=== PATIENT | female | born 1960 ===

== ENCOUNTER 2016-10-12 15:18 | Emergency (ER) | payer MEDICARE, OTHER ==
[2016-10-12 15:18] VITALS: BMI 20.9
[2016-10-12 15:48] VITALS: RESP 18; TEMP 98
--- NOTE | 2016-10-12 16:45 | ED PDOC ---
HPI: Abdomen Time Seen by Provider: 10/12/16 16:14 Chief Complaint (Nursing): GI Problem History Per: Patient History/Exam Limitations: no limitations Onset/Duration Of Symptoms: Gradual (2 months ago worse today) Current Symptoms Are (Timing): Still Present Severity: Mild Location Of Pain/Discomfort: RUQ Quality Of Discomfort: Sharp Associated Symptoms: denies: Fever, Chills, Nausea, Vomiting, Diarrhea, Loss Of Appetite, Back Pain, Chest Pain, Constipation, Urinary Symptoms Exacerbating Factors: None, Movement Last Bowel Movement: Yesterday Additional History Per: Patient Additional Complaint(s): Patient having RUQ pain that radiates to the back. Symptoms come and go for 2months. No v/d, nausea. Patient has had series of tests, US negative. medication dexalone and lebrax taken this am. Past Medical History Reviewed: Historical Data, Nursing Documentation, Vital Signs Vital Signs: Last Vital Signs Temp 98.0 F 10/12/16 15:45 Pulse 64 10/12/16 15:45 Resp 18 10/12/16 15:45 BP 102/77 10/12/16 15:45 Pulse Ox 100 10/12/16 18:47 - Medical History PMH: Anxiety, Back Problems (pain), Depression, Gastritis, GERD, HTN, Hypercholesterolemia, Hyperlipidemia, Hyperthyroidism, Hypothyroidism, Kidney Stones, Migraine, Chronic Kidney Disease - Surgical History Surgical History: Denies: Appendectomy - Family History Family History: States: Unknown Family Hx, CAD (father) - Living Arrangements Living Arrangements: With Family - Social History Current smoker - smoking cessation education provided: No - Home Medications Home Medications: Ambulatory Orders Medication Instructions Recorded ALPRAZolam [Xanax] 1 mg PO HS 01/20/16 Famotidine [Pepcid] 20 mg PO DAILY 05/30/16 Mometasone Furoate [Nasonex] 2 spray NS DAILY PRN #1 spray.pump 08/03/16 - Allergies Allergies/Adverse Reactions: Allergies Allergy/AdvReac Type Severity Reaction Status Date / Time diphenhydramine HCl Allergy Intermediate SHORTNESS Verified 05/30/16 18:46 [From Benadryl] OF BREATH ciprofloxacin [From Cipro] Allergy RASH Verified 05/30/16 18:46 ciprofloxacin HCl Allergy RASH Verified 05/30/16 18:46 [From Cipro] hydromorphone HCl Allergy SHORTNESS Verified 05/30/16 18:46 [From Dilaudid] OF BREATH morphine Allergy RASH Verified 05/30/16 18:46 Penicillins Allergy RASH Verified 05/30/16 18:46 Review of Systems ROS Statement: Except As Marked, All Systems Reviewed And Found Negative Constitutional: Negative for: Fever, Chills Cardiovascular: Negative for: Chest Pain, Palpitations Respiratory: Negative for: Cough, Shortness of Breath Gastrointestinal: Positive for: Abdominal Pain. Negative for: Nausea, Vomiting , Diarrhea Physical Exam - Reviewed Nursing Documentation Reviewed: Yes Vital Signs Reviewed: Yes - Physical Exam Appears: Positive for: Uncomfortable Head Exam: Positive for: ATRAUMATIC, NORMAL INSPECTION, NORMOCEPHALIC Eye Exam: Positive for: Normal appearance, EOMI, PERRL Neck: Positive for: Normal, Painless ROM, Supple. Negative for: Decreased ROM Cardiovascular/Chest: Positive for: Regular Rate, Rhythm, Chest Non Tender. Negative for: Edema, Gallop, Murmur, Bradycardia, Tachycardia Respiratory: Positive for: Normal Breath Sounds. Negative for: Decreased Breath Sounds, Accessory Muscle Use, Crackles, Rales, Rhonchi Gastrointestinal/Abdominal: Positive for: Normal Exam, Bowel Sounds, Soft. Negative for: Tenderness Back: Positive for: Normal Inspection. Negative for: L CVA Tenderness, R CVA Tenderness Extremity: Positive for: Normal ROM. Negative for: Tenderness, Pedal Edema Neurologic/Psych: Positive for: Alert, interpreter for the deaf II-XII, Oriented. Negative for: Motor/Sensory Deficits - Laboratory Results Result Diagrams: 10/12/16 16:50 10/12/16 16:50 - ECG ECG: Positive for: Interpreted By Pa ECG Rhythm: Positive for: Normal QRS, Normal ST Segment, Sinus Bradycardia. Negative for: ST/T Changes Interpretation Of Abn EKG: rate 54, no evidence of ischemia O2 Sat by Pulse Oximetry: 100 Pulse Ox Interpretation: Normal - Radiology X-Ray: Interpreted by Pa X-Ray Interpretation: No Acute Disease - Progress ED Course And Treament: pt seen and eval by Dr saucedo in the ed will d/c home Re-evaluation Time: 18:45 Condition: Improved Disposition - Clinical Impression Clinical Impression: Flank pain, acute - Patient ED Disposition Is Patient to be Admitted: No Counseled Patient/Family Regarding: Studies Performed, Diagnosis, Need For Followup - Disposition Referrals: Archie Cooper MD [Family Provider] - Disposition: Routine/Home Disposition Time: 18:46 Condition: GOOD Instructions: Flank Pain (ED)
[2016-10-12 17:12] LABS: BASO % 0.4 % (0.0-2.0); LYMPH # 1.7 K/uL (1.0-4.3); LYMPH % 39.6 % (20.0-40.0); MEAN CELL VOLUME 84.5 fl (81.0-99.0); MEAN CORPUSCULAR HEMOGLOBIN 27.4 pg (27.0-31.0); MEAN CORPUSCULAR HGB CONC 32.4 g/dL (33.0-37.0); MEAN PLATELET VOLUME 9.4 fl (7.2-11.7); MONO # 0.3 K/uL (0.0-0.8); MONO % 7.9 % (0.0-10.0); NEUT # 2.3 K/uL (1.8-7.0); NEUT % 51.1 % (50.0-75.0); NRBC % 0.1 % (0.0-0.0); RED CELL DISTRIBUTION WIDTH 13.7 % (11.5-14.5); WHITE BLOOD COUNT 4.4 K/uL (4.8-10.8)
[2016-10-12 17:17] LABS: RBC URINE 2 /hpf (0-3); URINE BILIRUBIN NEGATIVE (NEGATIVE); URINE BLOOD SMALL (NEGATIVE); URINE COLOR YELLOW (YELLOW); URINE GLUCOSE (UA) NEG (Normal); URINE KETONE TRACE mg/dL (NEGATIVE); URINE LEUKOCYTE ESTERASE NEG Leu/uL (Negative); URINE PROTEIN NEGATIVE (NEGATIVE); URINE UROBILINOGEN 0.2-1.0 mg/dL (0.2-1.0)
[2016-10-12 17:30] LABS: ALB/GLOB RATIO 1.4 (1.0-2.1); ALKALINE PHOSPHATASE 82 U/L (38-126); ALT/SGPT 33 U/L (9-52); AMYLASE 99 U/L (30-110); AST/SGOT 57 U/L (14-36); BILIRUBIN,TOTAL 0.7 mg/dl (0.2-1.3); BLOOD UREA NITROGEN 11 mg/dl (7-17); CARBON DIOXIDE 29 mmol/L (22-30); CHLORIDE 101 mmol/L (98-107); GFR AFRICAN-AMERICAN > 60; GLUCOSE,RANDOM 84 mg/dL (65-105); LIPASE 96 U/L (23-300); POTASSIUM 4.2 MMOL/L (3.6-5.0); SODIUM 144 mmol/l (132-148); TOTAL PROTEIN 7.8 G/DL (6.3-8.2)
--- NOTE | 2016-10-12 18:20 | CT ---
PROCEDURE: CT Abdomen and Pelvis without Oral or IV contrast. HISTORY: r flank pain COMPARISON: CT abdomen and pelvis performed 06/18/15, abdominal ultrasound performed 04/19/16 TECHNIQUE: Contiguous axial images of the abdomen and pelvis. No oral or IV contrast administered. Coronal and Sagittal reformats generated and reviewed. Radiation dose: Total exam DLP = 317.25 MGy-cm. This CT exam was performed using one or more of the following dose reduction techniques: Automated exposure control, adjustment of the mA and/or kV according to patient size, and/or use of iterative reconstruction technique. FINDINGS: There is limited evaluation of the solid organs without the administration of IV contrast. LOWER THORAX: Minimal basilar atelectasis. There is no visible pleural effusion or pneumothorax. Small hiatal hernia. LIVER: Unremarkable unenhanced appearance. GALLBLADDER AND BILE DUCTS: Unremarkable unenhanced appearance. PANCREAS: Unremarkable unenhanced appearance. SPLEEN: Unremarkable unenhanced appearance. ADRENALS: Unremarkable unenhanced appearance. KIDNEYS AND URETERS: No hydronephrosis or obstructing renal calculus. BLADDER: The urinary bladder appears unremarkable. REPRODUCTIVE: Uterus is absent, consistent with hysterectomy. APPENDIX: The appendix appears within normal limits of caliber. No secondary signs of acute appendicitis. BOWEL: The stomach is nondistended. Lack of oral contrast limits evaluation for bowel pathology. The bowel loops appear within normal limits of caliber without evidence of intestinal obstruction. Rectal wall thickening; correlate clinically for possibility of proctitis. PERITONEUM: No significant free fluid. No definite free air. LYMPH NODES: No bulky lymphadenopathy identified. VASCULATURE: No aortic aneurysm. BONES: No acute osseous abnormality is detected. OTHER FINDINGS: None. IMPRESSION: Rectal wall thickening; correlate clinically for possibility of proctitis.
[2016-10-12 19:29] VITALS: BP 112/70; PULSE 78; O2SAT 98
--- NOTE | 2016-10-13 08:15 | RAD ---
PROCEDURE: CHEST RADIOGRAPH, 1 VIEW HISTORY: right flank pain COMPARISON: Comparison is made to 05/24/2016 FINDINGS: LUNGS: Clear. PLEURA: No pneumothorax or pleural fluid seen. CARDIOVASCULAR: Normal. OSSEOUS STRUCTURES: No significant abnormalities. VISUALIZED UPPER ABDOMEN: Normal. OTHER FINDINGS: None. IMPRESSION: No active disease.
--- NOTE | 2016-10-14 11:47 | CARD ---
APPROVED REPORT EKG Measurement Heart [id number] [id number] <Conclusion> Sinus bradycardia Otherwise normal ECG
== END 2016-10-12 19:30 | disposition home or self-care (01) ==
LOC: H.ER 15:18
DX: R10.9 Unspecified abdominal pain (principal); Z88.0 Allergy status to penicillin; I12.9 Hypertensive chronic kidney disease with stage 1 through stage 4 chronic kidney disease, or unspecified chronic kidney disease; F41.9 Anxiety disorder, unspecified; E78.00 Pure hypercholesterolemia, unspecified; E03.9 Hypothyroidism, unspecified
CPT/HCPCS: 71010; 74176; 80053; 81003; 82150; 83690; 84484; 85025; 93005; 96374; 96375; 99282; J1885

== ENCOUNTER 2016-12-14 12:38 | Observation (INO) | payer MEDICARE, OTHER ==
[2016-12-14 12:39] VITALS: BMI 20.9
--- NOTE | 2016-12-14 13:10 | ED PDOC ---
HPI: Chest Pain Time Seen by Provider: 12/14/16 12:49 Chief Complaint (Nursing): Palpitations Chief Complaint (Provider): Chest tightness, palpitations History Per: Patient History/Exam Limitations: no limitations Onset/Duration Of Symptoms: Hrs Current Symptoms Are (Timing): Still Present Severity: Moderate Quality: Tightness Additional History Per: Patient Additional Complaint(s): The patient is a 55yo female, PMHx of hyperthyroidsm, presents to the ED for evaluation of chest tightness associated with palpitations since this morning. The patient reports she has a history of hyperthyroidsm and was recently placed on PtU; she has had similar episodes of chest tightness due to hyperthryoidsm. The patient currently denies any other medical complaints. PCP: None provided Past Medical History Reviewed: Historical Data, Nursing Documentation, Vital Signs Vital Signs: Last Vital Signs Temp 98 F 12/14/16 12:42 Pulse 90 12/14/16 14:19 Resp 20 12/14/16 12:42 BP 136/73 12/14/16 12:42 Pulse Ox 98 12/14/16 14:19 - Medical History PMH: Anxiety, Back Problems (pain), Depression, Gastritis, GERD, HTN, Hypercholesterolemia, Hyperlipidemia, Hyperthyroidism, Hypothyroidism, Kidney Stones, Migraine, Chronic Kidney Disease - Surgical History Surgical History: Denies: Appendectomy - Family History Family History: States: Unknown Family Hx, CAD (father) - Home Medications Home Medications: Ambulatory Orders Medication Instructions Recorded ALPRAZolam [Xanax] 1 mg PO HS 01/20/16 Famotidine [Pepcid] 20 mg PO DAILY 05/30/16 Mometasone Furoate [Nasonex] 2 spray NS DAILY PRN #1 spray.pump 08/03/16 - Allergies Allergies/Adverse Reactions: Allergies Allergy/AdvReac Type Severity Reaction Status Date / Time diphenhydramine HCl Allergy Intermediate SHORTNESS Verified 05/30/16 18:46 [From Benadryl] OF BREATH ciprofloxacin [From Cipro] Allergy RASH Verified 05/30/16 18:46 ciprofloxacin HCl Allergy RASH Verified 05/30/16 18:46 [From Cipro] hydromorphone HCl Allergy SHORTNESS Verified 05/30/16 18:46 [From Dilaudid] OF BREATH morphine Allergy RASH Verified 05/30/16 18:46 Penicillins Allergy RASH Verified 05/30/16 18:46 Review of Systems ROS Statement: Except As Marked, All Systems Reviewed And Found Negative Cardiovascular: Positive for: Palpitations, Other (chest tightness) Physical Exam - Reviewed Nursing Documentation Reviewed: Yes Vital Signs Reviewed: Yes - Physical Exam Appears: Positive for: Well, Non-toxic, No Acute Distress Head Exam: Positive for: ATRAUMATIC, NORMAL INSPECTION, NORMOCEPHALIC Skin: Positive for: Normal Color Eye Exam: Positive for: Normal appearance Neck: Positive for: Normal (no masses noted; no thyroidmegaly present), Supple Cardiovascular/Chest: Positive for: Regular Rate, Rhythm Respiratory: Positive for: Normal Breath Sounds. Negative for: Respiratory Distress Gastrointestinal/Abdominal: Positive for: Soft. Negative for: Tenderness Neurologic/Psych: Positive for: Alert, Oriented - Laboratory Results Result Diagrams: 12/14/16 13:20 12/14/16 13:20 - ECG ECG: Positive for: Interpreted By Me, Viewed By Me ECG Rhythm: Positive for: Sinus Rhythm. Negative for: ST/T Changes Interpretation Of ECG: T-wave inversion V2 and V3, more pronounced compared to EKG done on 05/24/2016. Rate: 90 O2 Sat by Pulse Oximetry: 98 (RA) Pulse Ox Interpretation: Normal Medical Decision Making Medical Decision Making: Time: 1302 Impression: Chest pain, palpitations; r/o ACS vs. symptoms of hyperthyroidsm Plan: * CMP * Troponin I * CBC * EKG Scribe Attestation: Documented by Fabi Ham acting as a scribe for Freddy Walker MD. Provider Attestation: All medical record entries made by the Scribe were at my direction and personally dictated by me. I have reviewed the chart and agree that the record accurately reflects my personal performance of the history, physical exam, medical decision making, and the department course for this patient. I have also personally directed, reviewed, and agree with the discharge instructions and disposition. Disposition - Clinical Impression Clinical Impression: Chest pain - Patient ED Disposition Is Patient to be Admitted: Yes - Disposition Disposition Time: 15:06 Condition: FAIR - Pt Status Changed To: Hospital Disposition Of: Observation - POA Present On Arrival: None
[2016-12-14 13:32] LABS: BASO % 0.4 % (0.0-2.0); EOS % 0.3 % (0.0-4.0); HEMATOCRIT 39.5 % (34.0-47.0); LYMPH # 1.4 K/uL (1.0-4.3); LYMPH % 28.9 % (20.0-40.0); MEAN CELL VOLUME 84.6 fl (81.0-99.0); MEAN CORPUSCULAR HEMOGLOBIN 27.8 pg (27.0-31.0); MEAN CORPUSCULAR HGB CONC 32.8 g/dL (33.0-37.0); MEAN PLATELET VOLUME 8.9 fl (7.2-11.7); MONO # 0.3 K/uL (0.0-0.8); MONO % 5.4 % (0.0-10.0); NEUT # 3.1 K/uL (1.8-7.0); NRBC % 0.1 % (0.0-0.0); RED CELL DISTRIBUTION WIDTH 14.2 % (11.5-14.5); WHITE BLOOD COUNT 4.8 K/uL (4.8-10.8)
[2016-12-14 13:49] LABS: ALB/GLOB RATIO 1.6 (1.0-2.1); ALKALINE PHOSPHATASE 65 U/L (38-126); ALT/SGPT 32 U/L (9-52); AST/SGOT 30 U/L (14-36); BILIRUBIN,TOTAL 0.4 mg/dl (0.2-1.3); BLOOD UREA NITROGEN 13 mg/dl (7-17); CALCIUM 10.2 mg/dL (8.4-10.2); CARBON DIOXIDE 30 mmol/L (22-30); CHLORIDE 103 mmol/L (98-107); GFR AFRICAN-AMERICAN > 60; GLUCOSE,RANDOM 115 mg/dL (65-105); POTASSIUM 4.5 MMOL/L (3.6-5.0); SODIUM 144 mmol/l (132-148); TOTAL PROTEIN 8.1 G/DL (6.3-8.2)
--- NOTE | 2016-12-14 19:57 | CP.PCM.HP ---
History of Present Illness - History of Present Illness History of Present Illness: Pt is a 55 year old female, with a hx of hyperlipidemia, hyperthyroidism, hypothyroidism and hypertension, presenting to the ED for palpitations and chest pain Pt was iseen by endo this week and restarted on PTU Pt has long hx of anxiety and depression Present on Admission - Present on Admission Any Indicators Present on Admission: No Past Patient History - Infectious Disease Hx of Infectious Diseases: None - Tetanus Immunizations Tetanus Immunization: Unknown - Past Medical History & Family History Past Medical History?: Yes - Past Social History Smoking Status: Former Smoker - CARDIAC Hx Hypercholesterolemia: Yes Hx Hypertension: Yes - PULMONARY Hx Respiratory Disorders: No - NEUROLOGICAL Hx Migraine: Yes - HEENT Hx HEENT Problems: No - RENAL Hx Chronic Kidney Disease: Yes Hx Kidney Stones: Yes - ENDOCRINE/METABOLIC Hx Hyperthyroidism: Yes Hx Hypothyroidism: Yes - HEMATOLOGICAL/ONCOLOGICAL Hx Blood Disorders: No Other/Comment: hyperkalemia - INTEGUMENTARY Hx Dermatological Problems: Yes (periorbital cellulitis) - MUSCULOSKELETAL/RHEUMATOLOGICAL Hx Musculoskeletal Disorders: Yes Hx Back Pain: Yes Hx Falls: Yes (TRIPPED & FELL ON HER BUTTOCKS- 2010) Other/Comment: Fibromyalgia - GASTROINTESTINAL Hx Gastritis: Yes - GENITOURINARY/GYNECOLOGICAL Hx Genitourinary Disorders: Yes (UTI) - PSYCHIATRIC Hx Anxiety: Yes Hx Depression: Yes - SURGICAL HISTORY Hx Appendectomy: No - ANESTHESIA Hx Anesthesia: Yes Hx Anesthesia Reactions: No Hx Malignant Hyperthermia: No Meds Allergies/Adverse Reactions: Allergies Allergy/AdvReac Type Severity Reaction Status Date / Time diphenhydramine HCl Allergy Intermediate SHORTNESS Verified 05/30/16 18:46 [From Benadryl] OF BREATH ciprofloxacin [From Cipro] Allergy RASH Verified 05/30/16 18:46 ciprofloxacin HCl Allergy RASH Verified 05/30/16 18:46 [From Cipro] hydromorphone HCl Allergy SHORTNESS Verified 05/30/16 18:46 [From Dilaudid] OF BREATH morphine Allergy RASH Verified 05/30/16 18:46 Penicillins Allergy RASH Verified 05/30/16 18:46 Physical Exam - Respiratory Exam Respiratory Exam: NORMAL BREATHING PATTERN - Cardiovascular Exam Cardiovascular Exam: REGULAR RHYTHM - GI/Abdominal Exam GI & Abdominal Exam: Normal Bowel Sounds Results - Vital Signs Recent Vital Signs: Last Vital Signs Temp 98.4 F 12/14/16 17:10 Pulse 58 L 12/14/16 17:10 Resp 18 12/14/16 17:10 BP 123/71 12/14/16 17:10 Pulse Ox 100 12/14/16 17:10 - Labs Result Diagrams: 12/14/16 13:20 12/14/16 13:20 Assessment & Plan - Assessment and Plan (Free Text) Assessment: Chest pain and palpitations Hx hyperlipidemia, hyperthyroidism, hypothyroidism and hypertension, EKG [facility] Endocronology Anxiety and Depression - Date & Time Date: 12/14/16 Time: 22:22
--- NOTE | 2016-12-14 23:43 | CARD ---
APPROVED REPORT EKG Measurement Heart [id number] <Conclusion> Normal sinus rhythm Nonspecific T wave abnormality Abnormal ECG
[2016-12-15 07:37] LABS: ALB/GLOB RATIO 1.6 (1.0-2.1); ALKALINE PHOSPHATASE 67 U/L (38-126); ALT/SGPT 35 U/L (9-52); AST/SGOT 31 U/L (14-36); BILIRUBIN,TOTAL 0.6 mg/dl (0.2-1.3); BLOOD UREA NITROGEN 15 mg/dl (7-17); CALCIUM 9.8 mg/dL (8.4-10.2); CARBON DIOXIDE 29 mmol/L (22-30); CHLORIDE 103 mmol/L (98-107); GFR AFRICAN-AMERICAN > 60; GLUCOSE,RANDOM 81 mg/dL (65-105); POTASSIUM 4.6 MMOL/L (3.6-5.0); SODIUM 142 mmol/l (132-148); TOTAL PROTEIN 8.1 G/DL (6.3-8.2)
[2016-12-15 07:55] VITALS: O2SAT 100
[2016-12-15 10:35] LABS: BASO % 0.3 % (0.0-2.0); EOS % 0.6 % (0.0-4.0); HEMATOCRIT 40.9 % (34.0-47.0); LYMPH # 1.1 K/uL (1.0-4.3); LYMPH % 27.9 % (20.0-40.0); MEAN CELL VOLUME 85.1 fl (81.0-99.0); MEAN CORPUSCULAR HEMOGLOBIN 27.4 pg (27.0-31.0); MEAN CORPUSCULAR HGB CONC 32.2 g/dL (33.0-37.0); MONO # 0.2 K/uL (0.0-0.8); MONO % 4.6 % (0.0-10.0); NEUT # 2.7 K/uL (1.8-7.0); NEUT % 66.6 % (50.0-75.0); NRBC % 0.3 % (0.0-0.0); RED CELL DISTRIBUTION WIDTH 14.3 % (11.5-14.5); WHITE BLOOD COUNT 4.1 K/uL (4.8-10.8)
[2016-12-15 10:41] LABS: T4 7.29 ug/dl (5.5-11.0)
--- NOTE | 2016-12-15 10:45 | CP.PCM.CON ---
History of Present Illness - History of Present Illness History of Present Illness: THE PATIENT IS A 55 YEAR OLD FEMALE WITH A HISTORY OF ANXIETY AND HYPERTHYROIDISM. SHE HAS BEEN WORRIED THIS MONTH ABOUT HER SON'S HEALTH ISSUE AND EXPERIENCED ANXIETY AND PALPITATIONS AND SHE CAME TO THE ER FOR THIS. SHE ALSO SATED THAT SHE HAD CHEST TIGHTNESS BUT HER MAJOR SYMPTOM WAS PALPITATIONS. IN THE ER SHE HAS REMAINED IN SINUS RHYTHM HER HEART RATE WAS NEVER FAST. SHE HAD A SIMILAR PROBLEM IN MAY 2016 AND HAD AN ECHOCARDIOGRAM THEN AND SHE HAD A NORMAL STRESS TEST IN AUGUST OF 2013. CARDIOLOGY WAS ASKED TO SEE HER. SHE FEELS GOOD NOW WITHOUT ANY CHEST TIGHTNESS, PALPITATIONS OR SOB. Past Patient History - Infectious Disease Hx of Infectious Diseases: None - Tetanus Immunizations Tetanus Immunization: Unknown - Past Medical History & Family History Past Medical History?: Yes - Past Social History Smoking Status: Former Smoker - CARDIAC Hx Cardiac Disorders: No - PULMONARY Hx Respiratory Disorders: No - NEUROLOGICAL Hx Neurological Disorder: No - HEENT Hx HEENT Problems: No - RENAL Hx Chronic Kidney Disease: Yes - ENDOCRINE/METABOLIC Hx Endocrine Disorders: Yes - HEMATOLOGICAL/ONCOLOGICAL Hx Blood Disorders: No - INTEGUMENTARY Hx Dermatological Problems: Yes (periorbital cellulitis) - MUSCULOSKELETAL/RHEUMATOLOGICAL Hx Musculoskeletal Disorders: Yes - GASTROINTESTINAL Hx Gastritis: Yes - GENITOURINARY/GYNECOLOGICAL Hx Genitourinary Disorders: Yes (UTI) - PSYCHIATRIC Hx Psychophysiologic Disorder: No - SURGICAL HISTORY Hx Appendectomy: No - ANESTHESIA Hx Anesthesia: Yes Hx Anesthesia Reactions: No Hx Malignant Hyperthermia: No Meds Allergies/Adverse Reactions: Allergies Allergy/AdvReac Type Severity Reaction Status Date / Time diphenhydramine HCl Allergy Intermediate SHORTNESS Verified 05/30/16 18:46 [From Benadryl] OF BREATH ciprofloxacin [From Cipro] Allergy RASH Verified 05/30/16 18:46 ciprofloxacin HCl Allergy RASH Verified 05/30/16 18:46 [From Cipro] hydromorphone HCl Allergy SHORTNESS Verified 05/30/16 18:46 [From Dilaudid] OF BREATH morphine Allergy RASH Verified 05/30/16 18:46 Penicillins Allergy RASH Verified 05/30/16 18:46 Physical Exam - Respiratory Exam Respiratory Exam: Clear to Auscultation Bilateral - Cardiovascular Exam Cardiovascular Exam: REGULAR RHYTHM, +S1, +S2 - Extremities Exam Extremities exam: Positive for: normal inspection - Additional Findings Additional findings: EKG NSR TROPONINS NORMAL Results - Vital Signs Recent Vital Signs: Last Vital Signs Temp 98.6 F 12/15/16 07:55 Pulse 61 12/15/16 07:55 Resp 18 12/15/16 07:55 BP 101/48 L 12/15/16 07:55 Pulse Ox 100 12/15/16 07:55 - Labs Result Diagrams: 12/15/16 10:20 12/15/16 07:18 Labs: Laboratory Results - last 24 hr 12/15/16 12/15/16 12/15/16 04:15 07:18 10:20 WBC 4.1 L RBC 4.81 Hgb 13.2 Hct 40.9 MCV 85.1 MCH 27.4 MCHC 32.2 L RDW 14.3 Plt Count 210 MPV 9.0 Neut % (Auto) 66.6 Lymph % (Auto) 27.9 [place] % (Auto) 4.6 Eos % (Auto) 0.6 Baso % (Auto) 0.3 Neut # 2.7 Lymph # 1.1 [place] # 0.2 Eos # 0.0 Baso # 0.0 Sodium 142 Potassium 4.6 Chloride 103 Carbon Dioxide 29 Anion Gap 15 BUN 15 Creatinine 0.7 Est GFR ( Amer) > 60 Est GFR (Non-Af Amer) > 60 Random Glucose 81 Calcium 9.8 Total Bilirubin 0.6 AST 31 ALT 35 Alkaline Phosphatase 67 Troponin I < 0.0120 Total Protein 8.1 Albumin 4.9 Globulin 3.2 Albumin/Globulin Ratio 1.6 Assessment & Plan - Assessment and Plan (Free Text) Assessment: ANXIETY WITH PALPITATION AND MILD CHEST TIGHTNESS SENSATION YESTERDAY, ASYMPTOMATIC NOW AND EKG AND TROPONINS ARE NORMAL HYPERTHYROIDISM Plan: OK TO DISCHARGE PATIENT FROM THE CARDIAC STANDPOINT NO CARDIAC TREATMENT IS NEEDED AT THE PRESENT TIME FU WITH ENDOCRINOLOGY THE PATIENT WAS ASKED TO CONSIDER DOING AN OUT PATIENT STRESS TEST IN THE NEAR FUTURE SINCE HER PRIOR STRESS TEST IS NOW [age] YEARS OLD
[2016-12-15 10:54] LABS: THYROID STIMULATING HORMONE 0.57 mIU/ML (0.46-4.68)
[2016-12-15 13:13] VITALS: BP 132/67; PULSE 65; RESP 19; TEMP 98.2
--- NOTE | 2016-12-15 20:54 | CP.PCM.PN ---
Subjective - Date & Time of Evaluation Date of Evaluation: 12/15/16 Time of Evaluation: 22:22 - Subjective Subjective: Above noted Objective - Vital Signs/Intake and Output Vital Signs (last 24 hours): Temp Pulse Resp BP Pulse Ox 98.2 F 65 19 132/67 100 12/15/16 13:11 12/15/16 13:11 12/15/16 13:11 12/15/16 13:11 12/15/16 13:11 - Labs Labs: 12/15/16 10:20 12/15/16 07:18 - Respiratory Exam Respiratory Exam: NORMAL BREATHING PATTERN - Cardiovascular Exam Cardiovascular Exam: REGULAR RHYTHM - GI/Abdominal Exam GI & Abdominal Exam: Normal Bowel Sounds Assessment and Plan - Assessment and Plan (Free Text) Assessment: Chest pain and palpitations Hx hyperlipidemia, hyperthyroidism, hypothyroidism and hypertension, EKG [facility] Endocronology Anxiety and Depression
[2016-12-17 15:20] LABS: TSI <89 % baseline (<140)
--- NOTE | 2016-12-19 14:52 | CON ---
DATE: 12/14/2016 This is a redictation for the admission on 12/14/2016. HISTORY OF PRESENT ILLNESS: This is a 55-year-old female, very well known to me from outpatient [facility] followup, who presents here to the ER with sudden onset of precordial chest pain and supervenin g palpitations and shortness of breath and has been admitted for cardiac evaluation and management. She is being referred now for endocrine evaluation because of recent history of relapse of her hypert hyroid condition as noted thereof. PAST MEDICAL HISTORY: History of Graves' disease with hyperthyroidism and was actually in clinical a nd biochemical remission for over a year until about a month or 2 prior to admission when she had lynn or family problems and emotional stressors and was found by a routine evaluation to have relapse of h er hyperthyroid condition. She was seen in my office a few weeks ago and was started back on her PT U, or propylthiouracil, given as 50 mg once daily, history of hypertension and dyslipidemia, history of nephrolithiasis, stable at this time with no recent stone passage, history of chronic migraines a nd also generalized anxiety and depression with multiple exacerbations of anxiety spells and episodes . She has been taking Xanax and sleeping medications intermittently. History of lumbar disk disease and chronic lower back pain, history of fibromyalgia and is being followed closely by her primary ph ysician and risk assessment consultant, history of GERD and chronic gastritis with intermittent dyspepsia, nausea and upper abdominal pain. FAMILY HISTORY: Positive for hypertension and heart disease. SOCIAL HISTORY: The patient has supportive family. No known substance use. REVIEW OF SYSTEMS: As mentioned above, admits to generalized body weakness with easy fatigability an d tiredness and suboptimal energy level. Also admits to episodic dizziness and lightheadedness with bifrontal headaches. Admits to recent onset of precordial chest pain with supervening palpitations a nd progressive shortness of breath, especially on exertion. Her oral intake is variable with nausea, dyspepsia, and vague upper abdominal pains with an occasional hyperdefecation. PHYSICAL EXAMINATION: GENERAL: An female in no apparent distress. VITAL SIGNS: Blood pressure of 140/80, pulse of 100 beats per minute and regular, temperature 98, re spirations 20. Height is 5 feet 1, weight is 112 pounds. HEENT: Head normocephalic. Eyes anicteric with pink conjunctivae. Fundoscopy not possible at this time. Ears, nose and throat otherwise normal. NECK: Supple. Thyroid gland shows nodular thyromegaly, which is firm and nontender with no bruits o r thyroid nodules palpable. CARDIOPULMONARY: Adynamic precordium. S1, S2 is rapid and regular. LUNGS: Clear to auscultation. ABDOMEN: Flat, soft with positive bowel sounds. EXTREMITIES: No peripheral edema. Pulses are +2 bilaterally. LABORATORY DATA: Chemistry showed a BUN of 13, sodium 144, potassium 4.5, chloride 103, CO2 of , glucose of 115 and creatinine 0.8. Her TSH level is 0.57 with a T4 of 7.29 and free T4 of 0.75 and a thyroid stimulating immunoglobulin of less than 89. ASSESSMENT: This is a 55-year-old female with sudden onset of precordial chest pain and palpitations with shortness of breath, currently admitted to the ER for cardiac evaluation and management and als o significant history of hyperthyroidism with recent relapse of her mild thyrotoxicosis related to tr emendous emotional stressors and family problems at this time. 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 PLAN OF MANAGEMENT: As discussed with the patient and the staff, we will continue the very low dose propylthiouracil, or PTU, given as 50 mg once daily as ordered. We will titrate incrementally as ind icated to optimize metabolic control. We will obtain a thyroid peroxidase antibody and a thyroid sti mulating immunoglobulin to confirm and/or indicate the presence of thyroid autoimmunity. We will als o obtain serial chemistries and supplement accordingly as needed and also repeat comprehensive thyroi d hormonal profile for the morning as indicated. We will follow. Meghan Gibson MD cc: [id number] TT: 12/19/2016 14:52:08 Confirmation # [id number] Dictation # [id number] evelyne
== END 2016-12-15 13:12 | disposition home or self-care (01) ==
LOC: H.ER 12:38 → H.ERHOLD 15:04
PROVIDERS: ADMIT Family Medicine Geriatric Medicine; ATTEND Family Medicine Geriatric Medicine
DX: R07.2 Precordial pain (principal); R00.2 Palpitations; E05.00 Thyrotoxicosis with diffuse goiter without thyrotoxic crisis or storm; E06.3 Autoimmune thyroiditis; I10 Essential (primary) hypertension; E78.5 Hyperlipidemia, unspecified; F41.9 Anxiety disorder, unspecified; F32.9 Major depressive disorder, single episode, unspecified; K21.9 Gastro-esophageal reflux disease without esophagitis; K29.50 Unspecified chronic gastritis without bleeding; M79.7 Fibromyalgia; Z87.891 Personal history of nicotine dependence; Z88.1 Allergy status to other antibiotic agents; Z88.6 Allergy status to analgesic agent; Z88.0 Allergy status to penicillin; Z87.442 Personal history of urinary calculi
CPT/HCPCS: 80053; 84439; 84443; 84445; 84484; 85025; 93005; 99284; G0378

== ENCOUNTER 2017-01-03 10:42 | Emergency (ER) | payer MEDICARE, OTHER ==
[2017-01-03 10:46] VITALS: BP 113/69; PULSE 65; RESP 20; TEMP 98; O2SAT 98
[2017-01-03 10:47] VITALS: BMI 21.1
[2017-01-03 12:13] LABS: BASO % 0.6 % (0.0-2.0); EOS % 0.4 % (0.0-4.0); HEMOGLOBIN 12.9 g/dL (12.0-16.0); LYMPH # 1.5 K/uL (1.0-4.3); LYMPH % 28.2 % (20.0-40.0); MEAN CELL VOLUME 84.2 fl (81.0-99.0); MEAN CORPUSCULAR HEMOGLOBIN 28.1 pg (27.0-31.0); MEAN CORPUSCULAR HGB CONC 33.4 g/dL (33.0-37.0); MEAN PLATELET VOLUME 8.9 fl (7.2-11.7); MONO # 0.2 K/uL (0.0-0.8); MONO % 4.7 % (0.0-10.0); NEUT # 3.4 K/uL (1.8-7.0); NEUT % 66.1 % (50.0-75.0); NRBC % 0.1 % (0.0-0.0); RBC 4.59 Mil/uL (3.80-5.20); RED CELL DISTRIBUTION WIDTH 14.4 % (11.5-14.5); WHITE BLOOD COUNT 5.2 K/uL (4.8-10.8)
[2017-01-03 12:16] LABS: BLOOD UREA NITROGEN 12 mg/dl (7-17); CALCIUM 9.8 mg/dL (8.4-10.2); GFR AFRICAN-AMERICAN > 60; GFR NON-AFRICAN AMERICAN > 60
--- NOTE | 2017-01-03 12:43 | ED PDOC ---
HPI: Headache Time Seen by Provider: 01/03/17 11:05 Chief Complaint (Nursing): Headache Chief Complaint (Provider): Headache History Per: Patient History/Exam Limitations: no limitations Onset/Duration Of Symptoms: Days Current Symptoms Are (Timing): Still Present Additional Complaint(s): Kellen Smith, a 56 year old female, with a past medical history of migraines presents to the ED complaining of a right sided headache. The patient states she had a very stressful day on Wednesday and yesterday she started having a constant right sided headache. She woke up with the headache more than 24 hr ago. She reports headache is similar to her migraines in the past. She had nasuea and photophobia as usual yesterday but resolved today. Her headache was worse yesterday and better today. The patient reports that the pain radiates down her shoulder and right side and up her neck. She reports similar pain in the past with her cervical disk herniations. She also noted some pressure in the right eye. She states that she took advil which offered mild relief. Denies fever, chest pain and shortness of breath. Denies sudden onset and thunderclap headache and says this is not the worse headache she has had in her life. Past Medical History Vital Signs: Last Vital Signs Temp 98 F 01/03/17 10:46 Pulse 65 01/03/17 10:46 Resp 20 01/03/17 10:46 BP 113/69 01/03/17 10:46 Pulse Ox 98 01/03/17 10:46 - Medical History PMH: Anxiety, Back Problems (pain), Depression, Gastritis, GERD, HTN, Hypercholesterolemia, Hyperlipidemia, Hyperthyroidism, Hypothyroidism, Kidney Stones, Migraine, Chronic Kidney Disease - Surgical History Surgical History: Denies: Appendectomy - Family History Family History: States: Unknown Family Hx, CAD (father) - Home Medications Home Medications: Ambulatory Orders Medication Instructions Recorded ALPRAZolam [Xanax] 1 mg PO HS 01/20/16 Dexlansoprazole [Dexilant] 60 mg PO DAILY 12/14/16 Famotidine [Pepcid] 40 mg PO DAILY PRN 12/14/16 Lubiprostone [Amitiza] 8 mcg PO BID PRN 12/14/16 Naproxen Sodium [Naproxen Sodium 550 mg PO BID 12/14/16 Ds] Propylthiouracil [Propylthiouracil] 50 mg PO QPM 12/14/16 Acetaminophen/Butalbital/Caf 1 tab PO Q6 PRN #20 tab 01/03/17 [Fioricet] - Allergies Allergies/Adverse Reactions: Allergies Allergy/AdvReac Type Severity Reaction Status Date / Time diphenhydramine HCl Allergy Intermediate SHORTNESS Verified 01/03/17 11:10 [From Benadryl] OF BREATH ciprofloxacin [From Cipro] Allergy RASH Verified 01/03/17 11:10 ciprofloxacin HCl Allergy RASH Verified 01/03/17 11:10 [From Cipro] hydromorphone HCl Allergy SHORTNESS Verified 01/03/17 11:10 [From Dilaudid] OF BREATH morphine Allergy RASH Verified 01/03/17 11:10 Penicillins Allergy RASH Verified 01/03/17 11:10 Review of Systems Constitutional: Negative for: Fever Cardiovascular: Negative for: Chest Pain Respiratory: Negative for: Shortness of Breath Neurological: Positive for: Headache (Right sided Headache) Physical Exam - Reviewed Nursing Documentation Reviewed: Yes Vital Signs Reviewed: Yes - Physical Exam Appears: Positive for: Non-toxic, No Acute Distress Head Exam: Positive for: ATRAUMATIC, NORMAL INSPECTION, NORMOCEPHALIC Skin: Positive for: Normal Color, Warm, Dry Eye Exam: Positive for: Normal appearance, EOMI, PERRL ENT: Positive for: Normal ENT Inspection Neck: Positive for: Normal (Muscle tenderness to palpation of lateral neck, trapezius muscle; no swelling; no redness; no rash), Painless ROM, Supple Cardiovascular/Chest: Positive for: Regular Rate, Rhythm, Chest Non Tender. Negative for: Tachycardia Respiratory: Positive for: Normal Breath Sounds. Negative for: Wheezing, Respiratory Distress Gastrointestinal/Abdominal: Positive for: Normal Exam, Bowel Sounds, Soft. Negative for: Tenderness, Guarding, Rebound Back: Positive for: Normal Inspection Extremity: Positive for: Normal ROM. Negative for: Deformity, Swelling Neurologic/Psych: Positive for: Alert, Oriented, Gait - Laboratory Results Result Diagrams: 01/03/17 12:00 01/03/17 12:00 - ECG ECG: Positive for: Interpreted By Me, Viewed By Me ECG Rhythm: Positive for: Normal QRS, Normal ST Segment, Sinus Rhythm. Negative for: ST/T Changes Rate: 65 O2 Sat by Pulse Oximetry: 98 (RA) Pulse Ox Interpretation: Normal - Progress Re-evaluation Time: 14:41 Condition: Re-examined, Improved Medical Decision Making Medical Decision Makin Initial Impression: 56 year old female presenting with right sided headache. Differentials: Temporal Vasculitis vs Migraines vs Tension Headache and other causes of headache considered Initial Plan: * CT Head w/o contrast * EKG * Basic Metabolic Panel * CBC * Erythrocyte Sedimentation Rate * Pepcid 20mg IVP * Toradol 15mg IVP * Reevaluation FINDINGS: HEMORRHAGE: No acute parenchymal, subarachnoid or extra-axial hemorrhage. BRAIN: No evidence of large acute infarct. . Re- demonstrated is small low- attenuation focus in the left left inferomedial inferomedial and posterior aspect left basal ganglia that could represent dilated perivascular space. The possibility of a tiny chronic lacunar type infarct not excluded. No obvious parenchymal nor extra-axial mass or collection. Mild age-appropriate volume loss VENTRICLES: No evidence of obstructive hydrocephalus. CALVARIUM: There are no acute calvarial fractures. PARANASAL SINUSES: Unremarkable as visualized. No significant inflammatory changes. MASTOID AIR CELLS: Unremarkable as visualized. No inflammatory changes. OTHER FINDINGS: None. IMPRESSION: No acute intracranial hemorrhage. Re- demonstrated is small low-attenuation focus in the left left inferomedial inferomedial and posterior aspect left basal ganglia that could represent dilated perivascular space. The possibility of a tiny chronic lacunar type infarct not excluded. Mild age-appropriate volume loss. Scribe Attestation Documented by Linh Almanza acting as a scribe for Keiry Rosales MD. Provider Attestation: All medical record entries made by the Scribe were at my direction and personally dictated by me. I have reviewed the chart and agree that the record accurately reflects my personal performance of the history, physical exam, medical decision making, and the department course for this patient. I have also personally directed, reviewed, and agree with the discharge instructions and disposition. Disposition - Clinical Impression Clinical Impression: Headache, Myalgia - Patient ED Disposition Is Patient to be Admitted: No Doctor Will See Patient In The: Office Counseled Patient/Family Regarding: Studies Performed, Diagnosis, Need For Followup - Disposition Referrals: Krishan Ibarra MD [Staff Provider] - Disposition: Routine/Home Disposition Time: 14:41 Condition: GOOD Additional Instructions: Return for worsening. Follow up with your PCP in 2-3 days. Prescriptions: Acetaminophen/Butalbital/Caf [Fioricet] 1 tab PO Q6 PRN #20 tab PRN Reason: Headache Instructions: General Headache (ED)
--- NOTE | 2017-01-03 14:06 | CT ---
PROCEDURE: CT HEAD WITHOUT CONTRAST. HISTORY: headache COMPARISON: Comparison made with CT scan of the brain dated 06/18/2015. TECHNIQUE: Axial computed tomography images were obtained through the head/brain without intravenous contrast. Radiation dose: Total exam DLP = 732.28 mGy-cm. This CT exam was performed using one or more of the following dose reduction techniques: Automated exposure control, adjustment of the mA and/or kV according to patient size, and/or use of iterative reconstruction technique. FINDINGS: HEMORRHAGE: No acute parenchymal, subarachnoid or extra-axial hemorrhage. BRAIN: No evidence of large acute infarct. . Re- demonstrated is small low-attenuation focus in the left left inferomedial inferomedial and posterior aspect left basal ganglia that could represent dilated perivascular space. The possibility of a tiny chronic lacunar type infarct not excluded. No obvious parenchymal nor extra-axial mass or collection. Mild age-appropriate volume loss VENTRICLES: No evidence of obstructive hydrocephalus. CALVARIUM: There are no acute calvarial fractures. PARANASAL SINUSES: Unremarkable as visualized. No significant inflammatory changes. MASTOID AIR CELLS: Unremarkable as visualized. No inflammatory changes. OTHER FINDINGS: None. IMPRESSION: No acute intracranial hemorrhage. Re- demonstrated is small low-attenuation focus in the left left inferomedial inferomedial and posterior aspect left basal ganglia that could represent dilated perivascular space. The possibility of a tiny chronic lacunar type infarct not excluded. Mild age-appropriate volume loss.
== END 2017-01-03 15:03 | disposition home or self-care (01) ==
LOC: H.ER 10:42
DX: R51 Headache (principal); M79.1 Myalgia; Z86.59 Personal history of other mental and behavioral disorders; I12.9 Hypertensive chronic kidney disease with stage 1 through stage 4 chronic kidney disease, or unspecified chronic kidney disease; Z87.442 Personal history of urinary calculi; Z88.0 Allergy status to penicillin; K21.9 Gastro-esophageal reflux disease without esophagitis
CPT/HCPCS: 70450; 80048; 85025; 85651; 96374; 96375; 99285; J1885

== ENCOUNTER 2017-04-12 10:59 | Emergency (ER) | payer MEDICARE, OTHER ==
[2017-04-12 11:00] VITALS: BMI 21.1
[2017-04-12] MEDS ORDERED: Sodium Chloride 0.9% 1,000 ML IV STA (12:03)
--- NOTE | 2017-04-12 12:22 | ED PDOC ---
HPI: Abdomen Time Seen by Provider: 04/12/17 11:32 Chief Complaint (Nursing): Abdominal Pain Chief Complaint (Provider): Abdominal pain History Per: Patient History/Exam Limitations: no limitations Onset/Duration Of Symptoms: Days Outside of [place] travel?: No Current Symptoms Are (Timing): Still Present Context: Food Location Of Pain/Discomfort: RUQ, Epigastric Quality Of Discomfort: "Pain" Associated Symptoms: denies: Fever, Vomiting, Diarrhea, Chest Pain, Urinary Symptoms Additional Complaint(s): 56yo female, presents to ED today for evaluation of right upper quadrant and epigastric pain, present for the past 3 days. Patient reports she ate something new 3 days ago and since then, she has had a constant abdominal pain. She reports taking Dexilant due to history of kidney stone and gastritis, she took the medication today with no relief. She denies any fever, vomiting, diarrhea, dysuria, chest pain. She offers no other medical complaints. PCP: Dr. Archie Cooper Past Medical History Reviewed: Historical Data, Nursing Documentation, Vital Signs Vital Signs: Last Vital Signs Temp 98 F 04/12/17 17:10 Pulse 56 L 04/12/17 17:10 Resp 18 04/12/17 17:10 BP 126/75 04/12/17 17:10 Pulse Ox 99 04/12/17 18:55 - Medical History PMH: Anxiety, Back Problems (pain), Depression, Gastritis, GERD, HTN, Hypercholesterolemia, Hyperlipidemia, Hyperthyroidism, Hypothyroidism, Kidney Stones, Migraine, Chronic Kidney Disease - Surgical History Surgical History: Appendectomy - Family History Family History: States: Unknown Family Hx, CAD (father) - Social History Current smoker - smoking cessation education provided: No Ex-Smoker (has not smoked in the last 12 months): Yes Alcohol: None Drugs: Denies - Home Medications Home Medications: Ambulatory Orders Medication Instructions Recorded ALPRAZolam [Xanax] 1 mg PO HS 01/20/16 Dexlansoprazole [Dexilant] 60 mg PO DAILY 12/14/16 Famotidine [Pepcid] 40 mg PO DAILY PRN 12/14/16 Lubiprostone [Amitiza] 8 mcg PO BID PRN 12/14/16 Naproxen Sodium [Naproxen Sodium 550 mg PO BID 12/14/16 Ds] Propylthiouracil [Propylthiouracil] 50 mg PO QPM 12/14/16 Acetaminophen/Butalbital/Caf 1 tab PO Q6 PRN #20 tab 01/03/17 [Fioricet] - Allergies Allergies/Adverse Reactions: Allergies Allergy/AdvReac Type Severity Reaction Status Date / Time diphenhydramine HCl Allergy Intermediate SHORTNESS Verified 04/12/17 11:32 [From Benadryl] OF BREATH ciprofloxacin [From Cipro] Allergy RASH Verified 04/12/17 11:32 ciprofloxacin HCl Allergy RASH Verified 04/12/17 11:32 [From Cipro] hydromorphone HCl Allergy SHORTNESS Verified 04/12/17 11:32 [From Dilaudid] OF BREATH morphine Allergy RASH Verified 04/12/17 11:32 Penicillins Allergy RASH Verified 04/12/17 11:32 Review of Systems ROS Statement: Except As Marked, All Systems Reviewed And Found Negative Constitutional: Negative for: Fever Cardiovascular: Negative for: Chest Pain Gastrointestinal: Positive for: Abdominal Pain. Negative for: Nausea, Vomiting , Diarrhea Genitourinary Female: Negative for: Dysuria Physical Exam - Reviewed Nursing Documentation Reviewed: Yes Vital Signs Reviewed: Yes - Physical Exam Appears: Positive for: Non-toxic, No Acute Distress Head Exam: Positive for: ATRAUMATIC, NORMAL INSPECTION, NORMOCEPHALIC Skin: Positive for: Warm Neck: Positive for: Supple Cardiovascular/Chest: Positive for: Regular Rate, Rhythm Respiratory: Positive for: Normal Breath Sounds. Negative for: Respiratory Distress Gastrointestinal/Abdominal: Positive for: Soft, Tenderness (right upper quadrant and epigastric tenderness), Other (positive Wright's sign) Back: Positive for: Normal Inspection. Negative for: L CVA Tenderness, R CVA Tenderness Neurologic/Psych: Positive for: Alert, Oriented. Negative for: Motor/Sensory Deficits - Laboratory Results Result Diagrams: 04/12/17 13:05 04/12/17 13:05 - ECG O2 Sat by Pulse Oximetry: 100 (RA) Pulse Ox Interpretation: Normal Medical Decision Making Medical Decision Making: Time: 12:04 Initial impression: Abdominal pain. Differential: Cholecystitis, pancreatitis, gastritis. Less likely kidney stones. Initial plan: Labs ED Urine Dipstick Pepcid 20 mg IVP Toradol 30 mg IVP Normal Saline 1 L IV Abdominal ultrasound Reevaluation 14:43 Abdominal ultrasound reviewed. Findings noted as follows: LIVER: Measures 13.9 cm in length. Patent portal vein. Portal venous flow: Hepatopetal. Unremarkeable echogenicity of the liver parenchyma. No mass. No intrahepatic bile duct dilatation. GALLBLADDER: Unremarkable. No gallstones. COMMON BILE DUCT: Measures 2.1 mm. No stones. No dilatation. PANCREAS: Unremarkable as visualized. No mass. No ductal dilatation. RIGHT KIDNEY: Measures 3.8 x 5.3 x 8.6 cm in length. Normal echogenicity. No calculus, mass, or hydronephrosis. AORTA: No aneurysmal dilatation. IVC: Unremarkable. OTHER FINDINGS: None . IMPRESSION: No significant or acute findings to account for/ related to the clinical presentation. No significant interval change compared to the prior examination(s ). Scribe Attestation: Documented by Marybeth Graves, acting as a scribe for Keiry Rosales MD. Provider Scribe Attestation: All medical record entries made by the Scribe were at my direction and personally dictated by me. I have reviewed the chart and agree that the record accurately reflects my personal performance of the history, physical exam, medical decision making, and the department course for this patient. I have also personally directed, reviewed, and agree with the discharge instructions and disposition. Disposition - Clinical Impression Clinical Impression: Abdominal pain in female - Patient ED Disposition Is Patient to be Admitted: Transfer of Care Counseled Patient/Family Regarding: Studies Performed, Diagnosis - Disposition Referrals: [facility] [Outside] [facility] [Outside] Disposition: Transfer of Care Disposition Time: 17:00 Condition: IMPROVED Additional Instructions: follow up with your primary doctor in 1-2 days return to the ED with any worsening or concerning symptoms Instructions: Abdominal Pain (ED) Patient Signed Over To: Chasity Herring
[2017-04-12 13:20] LABS: BASO % 0.4 % (0.0-2.0); EOS % 0.3 % (0.0-4.0); HEMATOCRIT 39.4 % (34.0-47.0); LYMPH # 1.3 K/uL (1.0-4.3); LYMPH % 25.6 % (20.0-40.0); MEAN CORPUSCULAR HEMOGLOBIN 28.5 pg (27.0-31.0); MEAN CORPUSCULAR HGB CONC 33.1 g/dL (33.0-37.0); MEAN PLATELET VOLUME 9.8 fl (7.2-11.7); MONO # 0.2 K/uL (0.0-0.8); MONO % 4.2 % (0.0-10.0); NEUT # 3.6 K/uL (1.8-7.0); NEUT % 69.5 % (50.0-75.0); NRBC % 0.1 % (0.0-0.0); RED CELL DISTRIBUTION WIDTH 13.1 % (11.5-14.5); WHITE BLOOD COUNT 5.3 K/uL (4.8-10.8)
[2017-04-12 13:28] LABS: ALB/GLOB RATIO 1.6 (1.0-2.1); ALKALINE PHOSPHATASE 63 U/L (38-126); ALT/SGPT 28 U/L (9-52); AST/SGOT 31 U/L (14-36); BILIRUBIN,TOTAL 0.5 mg/dl (0.2-1.3); BLOOD UREA NITROGEN 12 mg/dl (7-17); CALCIUM 10.1 mg/dL (8.4-10.2); CARBON DIOXIDE 31 mmol/L (22-30); CHLORIDE 104 mmol/L (98-107); GFR AFRICAN-AMERICAN > 60; GLUCOSE,RANDOM 103 mg/dL (65-105); LIPASE 142 U/L (23-300); POTASSIUM 4.2 MMOL/L (3.6-5.0); SODIUM 144 mmol/l (132-148); TOTAL PROTEIN 7.4 G/DL (6.3-8.2)
--- NOTE | 2017-04-12 14:45 | US ---
HISTORY: RUQ pain COMPARISON: 04/19/2016 TECHNIQUE: Sonographic evaluation of the right upper quadrant of the abdomen. FINDINGS: LIVER: Measures 13.9 cm in length. Patent portal vein. Portal venous flow: Hepatopetal. Unremarkeable echogenicity of the liver parenchyma. No mass. No intrahepatic bile duct dilatation. GALLBLADDER: Unremarkable. No gallstones. COMMON BILE DUCT: Measures 2.1 mm. No stones. No dilatation. PANCREAS: Unremarkable as visualized. No mass. No ductal dilatation. RIGHT KIDNEY: Measures 3.8 x 5.3 x 8.6 cm in length. Normal echogenicity. No calculus, mass, or hydronephrosis. AORTA: No aneurysmal dilatation. IVC: Unremarkable. OTHER FINDINGS: None . IMPRESSION: No significant or acute findings to account for/ related to the clinical presentation. No significant interval change compared to the prior examination(s).
[2017-04-12] MEDS ORDERED: Alum-Mag Hydrox-Simethicone Susp (30 mL) PO ONE (17:00)
[2017-04-12 17:11] VITALS: BP 126/75; PULSE 56; RESP 18; TEMP 98
--- NOTE | 2017-04-12 17:23 | ED PDOC ---
- Laboratory Results Result Diagrams: 04/12/17 13:05 04/12/17 13:05 - ECG O2 Sat by Pulse Oximetry: 99 (RA) Pulse Ox Interpretation: Normal Medical Decision Making Medical Decision Making: Receiving sign out: Patient signed out to me by Dr. Rosales at 1700 pending re-evaluation. Scribe Attestation: Documented by Fabi Ham acting as a scribe for Chasity Herring MD. Provider Attestation: All medical record entries made by the Scribe were at my direction and personally dictated by me. I have reviewed the chart and agree that the record accurately reflects my personal performance of the history, physical exam, medical decision making, and the department course for this patient. I have also personally directed, reviewed, and agree with the discharge instructions and disposition. Disposition - Clinical Impression Clinical Impression: Abdominal pain in female - POA Present On Arrival: None - Disposition Referrals: [facility] [Outside] [facility] [Outside] Disposition: Routine/Home Disposition Time: 19:00 Condition: IMPROVED Additional Instructions: follow up with your primary doctor in 1-2 days return to the ED with any worsening or concerning symptoms Instructions: Abdominal Pain (ED) Progress Note - Review of Symptoms Events since last encounter: Time: 1850 Upon re-evaluation, patient reports feeling much better. Stable for discharge home. CT shows no acute findings. pt made aware.
--- NOTE | 2017-04-12 17:55 | CT ---
PROCEDURE: CT Abdomen and Pelvis without intravenous contrast HISTORY: right flank pain COMPARISON: 10/12/2016 CT abdomen and pelvis April 12, 2017. Abdominal ultrasound TECHNIQUE: Unenhanced study. Neither oral nor intravenous contrast administered. Radiation dose: Total exam DLP = 362.32 mGy-cm. This CT exam was performed using one or more of the following dose reduction techniques: Automated exposure control, adjustment of the mA and/or kV according to patient size, and/or use of iterative reconstruction technique. FINDINGS: LOWER THORAX: Unremarkable. LIVER: Unremarkable. No gross lesion or ductal dilatation. GALLBLADDER AND BILE DUCTS: Unremarkable. PANCREAS: Unremarkable. No gross lesion or ductal dilatation. SPLEEN: Unremarkable. ADRENALS: Unremarkable. No mass. KIDNEYS AND URETERS: Unremarkable. No hydronephrosis. No solid mass. VASCULATURE: Unremarkable. No aortic aneurysm. BOWEL: Unremarkable. No obstruction. No gross mural thickening. APPENDIX: Unremarkable. Normal appendix. PERITONEUM: Unremarkable. No free fluid. No free air. LYMPH NODES: Unremarkable. No enlarged lymph nodes. BLADDER: Under distention of the bladder accentuating bladder wall thickness without focal bladder wall abnormality. REPRODUCTIVE: Unremarkable. BONES: No acute fracture. OTHER FINDINGS: None. IMPRESSION: No acute findings related to/accounting for the clinical presentation. Additional benign and/or incidental findings described above. No significant interval change compared to the prior examination(s).
[2017-04-12] MEDS ORDERED: Alum-Mag Hydrox-Simethicone Susp (30 mL) ONE (18:20)
--- NOTE | 2017-04-13 08:25 | CARD ---
APPROVED REPORT EKG Measurement Heart [id number] ID [id number] <Conclusion> Sinus bradycardia Otherwise normal ECG
[2017-04-13 22:43] VITALS: O2SAT 99
== END 2017-04-12 19:25 | disposition home or self-care (01) ==
LOC: H.ER 10:59
DX: R10.13 Epigastric pain (principal); Z87.442 Personal history of urinary calculi; E03.9 Hypothyroidism, unspecified; E05.90 Thyrotoxicosis, unspecified without thyrotoxic crisis or storm; E78.00 Pure hypercholesterolemia, unspecified; F32.9 Major depressive disorder, single episode, unspecified; F41.9 Anxiety disorder, unspecified; I12.9 Hypertensive chronic kidney disease with stage 1 through stage 4 chronic kidney disease, or unspecified chronic kidney disease; K21.9 Gastro-esophageal reflux disease without esophagitis; Z88.0 Allergy status to penicillin
CPT/HCPCS: 74176; 76705; 80053; 83690; 85025; 93005; 96374; 96375; 99282; J1885; J7040

== ENCOUNTER 2017-06-03 19:51 | Emergency (ER) | payer MEDICARE, OTHER ==
[2017-06-03 19:51] VITALS: BMI 21.1
[2017-06-03 20:02] VITALS: BP 107/54; PULSE 71; RESP 16; TEMP 97.6; O2SAT 99
--- NOTE | 2017-06-03 20:46 | ED PDOC ---
HPI: General Adult Chief Complaint (Provider): neck pain and back pain History Per: Patient History/Exam Limitations: no limitations Onset/Duration Of Symptoms: Days (x 2 weeks) Current Symptoms Are (Timing): Still Present Time Seen by Provider: 06/03/17 20:19 Chief Complaint (Nursing): Back Pain Additional Complaint(s): Kellen is a 56 y/o female with a history of chronic neck and back pain, who presents to the ED complaining of exacerbation of symptoms that started a couple weeks ago with no associated fall or trauma. She also states the pain started radiating to both arms as of a few days ago, which hasn't happened before. 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 She denies any chest pain, shortness of breath or dyspnea on exertion. Tylenol taken today at 3 pm helped only minimally with pain. PMD: Archie Cooper ([facility]) Past Medical History Reviewed: Historical Data, Nursing Documentation, Vital Signs - Medical History PMH: Anxiety, Back Problems (pain), Depression, Gastritis, GERD, HTN, Hypercholesterolemia, Hyperlipidemia, Hypothyroidism, Kidney Stones, Migraine, Osteoporosis (lower spine, left hip) - Surgical History Surgical History: Appendectomy - Family History Family History: States: CAD (father) - Living Arrangements Living Arrangements: With Family - Social History Current smoker - smoking cessation education provided: No Alcohol: None Drugs: Denies Vital Signs: Last Vital Signs Temp 97.6 F 06/03/17 19:59 Pulse 71 06/03/17 19:59 Resp 16 06/03/17 19:59 BP 107/54 L 06/03/17 19:59 Pulse Ox 99 06/03/17 21:34 - Home Medications Home Medications: Ambulatory Orders Medication Instructions Recorded ALPRAZolam [Xanax] 1 mg PO HS 01/20/16 Dexlansoprazole [Dexilant] 60 mg PO DAILY 12/14/16 Famotidine [Pepcid] 40 mg PO DAILY PRN 12/14/16 Lubiprostone [Amitiza] 8 mcg PO BID PRN 12/14/16 Naproxen Sodium [Naproxen Sodium 550 mg PO BID 12/14/16 Ds] Propylthiouracil [Propylthiouracil] 50 mg PO QPM 12/14/16 Acetaminophen/Butalbital/Caf 1 tab PO Q6 PRN #20 tab 01/03/17 [Fioricet] Ibuprofen [Motrin] 600 mg PO Q6 PRN #15 tab 06/03/17 Methylprednisolone [Medrol Dose 4 mg PO ASDIR #21 mg 06/03/17 Pack (21 tabs)] tiZANidine [Zanaflex] 4 mg PO Q8H PRN #20 tab 06/03/17 - Allergies Allergies/Adverse Reactions: Allergies Allergy/AdvReac Type Severity Reaction Status Date / Time diphenhydramine HCl Allergy Intermediate SHORTNESS Verified 06/03/17 19:59 [From Benadryl] OF BREATH ciprofloxacin [From Cipro] Allergy RASH Verified 06/03/17 19:59 ciprofloxacin HCl Allergy RASH Verified 06/03/17 19:59 [From Cipro] hydromorphone HCl Allergy SHORTNESS Verified 06/03/17 19:59 [From Dilaudid] OF BREATH morphine Allergy RASH Verified 06/03/17 19:59 Penicillins Allergy RASH Verified 06/03/17 19:59 Review of Systems ROS Statement: Except As Marked, All Systems Reviewed And Found Negative Constitutional: Negative for: Fever Cardiovascular: Negative for: Chest Pain Respiratory: Negative for: Shortness of Breath, SOB with Exertion Gastrointestinal: Negative for: Nausea, Vomiting Musculoskeletal: Positive for: Neck Pain (radiating to both arms), Back Pain Neurological: Negative for: Weakness, Numbness, Incoordination, Change in Speech , Confusion, Seizures, Altered Mental Status, Headache, Dizziness Physical Exam - Reviewed Nursing Documentation Reviewed: Yes Vital Signs Reviewed: Yes - Physical Exam Appears: Positive for: Well, Non-toxic, No Acute Distress Head Exam: Positive for: ATRAUMATIC, NORMAL INSPECTION, NORMOCEPHALIC Skin: Positive for: Normal Color Eye Exam: Positive for: Normal appearance Neck: Positive for: Pain On Movement Of Neck (mild tenderness to bilateral paraspinal regions along cervical spine, no midline tenderness or step off) Cardiovascular/Chest: Positive for: Regular Rate, Rhythm Respiratory: Positive for: Normal Breath Sounds. Negative for: Respiratory Distress Back: Positive for: Vertebral Tenderness (Tenderness along the paraspinal regions of lumbar spine, no midline tenderness, no step-off, negative bilateral straight leg raise). Negative for: L CVA Tenderness, R CVA Tenderness Extremity: Positive for: Normal ROM, Other (Full range of motion bilateral upper extremities are strong and equal bilateral hand allopathic doctor) Neurologic/Psych: Positive for: Alert, vp of marketing II-XII (grossly normal), Oriented, Gait (steady). Negative for: Motor/Sensory Deficits, Aphasia, Facial Droop - ECG O2 Sat by Pulse Oximetry: 99 (RA) Pulse Ox Interpretation: Normal Medical Decision Making Medical Decision Making: Time: 20:41 Initial Impression: 56 y/o female with exacerbation of chronic neck and back pain Initial Plan: --Toradol IM --Patient was counseled on need for follow up for pain management Patient reports improvement of pain after Toradol injection. Prescriptions provided for Motrin, Medrol Dosepak and tizanidine. Patient instructed to follow up as soon as possible with her paint crew supervisor. Scribe Attestation: Documented by Emir Bourgeois, acting as a scribe for Valorie Mercedes PA-C Provider Scribe Attestation: All medical record entries made by the Scribe were at my direction and personally dictated by me. I have reviewed the chart and agree that the record accurately reflects my personal performance of the history, physical exam, medical decision making, and the department course for this patient. I have also personally directed, reviewed, and agree with the discharge instructions and disposition. (Valorie Mercedes) Disposition - Patient ED Disposition Is Patient to be Admitted: No Counseled Patient/Family Regarding: Diagnosis, Need For Followup, Rx Given - Disposition Disposition: Routine/Home Disposition Time: 21:07 - Clinical Impression Clinical Impression: Chronic neck and back pain - Disposition Referrals: Devon Garcia MD [Staff Provider] - Condition: STABLE Additional Instructions: Take rx meds as directed. Follow up with pain management. Prescriptions: Ibuprofen [Motrin] 600 mg PO Q6 PRN #15 tab PRN Reason: Pain, Moderate (4-7) Methylprednisolone [Medrol Dose Pack (21 tabs)] 4 mg PO ASDIR #21 mg tiZANidine [Zanaflex] 4 mg PO Q8H PRN #20 tab PRN Reason: Muscle Pain Instructions: Chronic Pain (ED), Cervical Sprain (ED), Cervical Radiculopathy ( ED), Back Pain (ED) Forms: [employer] ([place]an)
--- NOTE | 2017-06-04 08:47 | CARD ---
APPROVED REPORT EKG Measurement Heart [id number] <Conclusion> Sinus bradycardia Otherwise normal ECG
== END 2017-06-03 21:37 | disposition home or self-care (01) ==
LOC: H.ER 19:51
DX: M54.9 Dorsalgia, unspecified (principal); M54.2 Cervicalgia; E03.9 Hypothyroidism, unspecified; E78.00 Pure hypercholesterolemia, unspecified; F32.9 Major depressive disorder, single episode, unspecified; F41.9 Anxiety disorder, unspecified; G89.29 Other chronic pain; I10 Essential (primary) hypertension; K21.9 Gastro-esophageal reflux disease without esophagitis; M81.0 Age-related osteoporosis without current pathological fracture; Z87.442 Personal history of urinary calculi; Z88.0 Allergy status to penicillin
CPT/HCPCS: 93005; 96372; 99282; J1885

== ENCOUNTER 2017-06-15 17:57 | Emergency (ER) | payer MEDICARE, OTHER ==
[2017-06-15 17:57] VITALS: BMI 21.1
[2017-06-15 20:26] LABS: BASO % 0.6 % (0.0-2.0); EOS % 0.7 % (0.0-4.0); LYMPH % 35.9 % (20.0-40.0); MEAN CELL VOLUME 86.9 fl (81.0-99.0); MEAN CORPUSCULAR HEMOGLOBIN 27.9 pg (27.0-31.0); MEAN CORPUSCULAR HGB CONC 32.1 g/dL (33.0-37.0); MEAN PLATELET VOLUME 9.1 fl (7.2-11.7); MONO # 0.3 K/uL (0.0-0.8); MONO % 5.2 % (0.0-10.0); NEUT # 3.2 K/uL (1.8-7.0); NEUT % 57.6 % (50.0-75.0); NRBC % 0.1 % (0.0-0.0); RED CELL DISTRIBUTION WIDTH 14.4 % (11.5-14.5); WHITE BLOOD COUNT 5.6 K/uL (4.8-10.8)
--- NOTE | 2017-06-15 21:25 | ED PDOC ---
HPI: General Adult Time Seen by Provider: 06/15/17 19:28 Chief Complaint (Nursing): Chest Pain Chief Complaint (Provider): Fatigue History Per: Patient History/Exam Limitations: no limitations Onset/Duration Of Symptoms: Days (x3) Current Symptoms Are (Timing): Still Present Recently: Treated By A Physician Additional Complaint(s): Kellen Smith is a 56 year old female, with a past medical history of hypertension, arthritis, hypothyroidism, chronic kidney disease, and hypercholesterolemia, who presents to the emergency department complaining of fatigue associated with increased generalized weakness and heaviness in her chest onset for x3 days. She is also complaining of chills and nausea. Patient reports a decrease exercise tolerance and dyspnea on exertion. Patient states it became more severe this morning when she woke up. She saw her PMD today who advised her to come to ER. She had a similar episode x1 year ago when she was diagnosed with hypothyroidism. She denies any focal weakness, headache, vomiting or fever. No further medical complaints. PMD: Archie Monge Past Medical History Reviewed: Historical Data, Nursing Documentation, Vital Signs Vital Signs: Last Vital Signs Temp 97.7 F 06/15/17 18:20 Pulse 64 06/15/17 18:20 Resp 16 06/15/17 18:20 BP 144/76 06/15/17 18:20 Pulse Ox 98 06/15/17 21:32 - Medical History PMH: Anxiety, Arthritis, Back Problems (pain), Depression, Gastritis, GERD, HTN , Hypercholesterolemia, Hyperlipidemia, Hyperthyroidism, Hypothyroidism, Kidney Stones, Migraine, Osteoporosis (lower spine, left hip), Chronic Kidney Disease - Surgical History Surgical History: Appendectomy - Family History Family History: States: CAD (father), Hypertension - Social History Current smoker - smoking cessation education provided: No Alcohol: None Drugs: Denies - Home Medications Home Medications: Ambulatory Orders Medication Instructions Recorded ALPRAZolam [Xanax] 1 mg PO HS 01/20/16 Dexlansoprazole [Dexilant] 60 mg PO DAILY 12/14/16 Famotidine [Pepcid] 40 mg PO DAILY PRN 12/14/16 Lubiprostone [Amitiza] 8 mcg PO BID PRN 12/14/16 Naproxen Sodium [Naproxen Sodium 550 mg PO BID 12/14/16 Ds] Propylthiouracil [Propylthiouracil] 50 mg PO QPM 12/14/16 Acetaminophen/Butalbital/Caf 1 tab PO Q6 PRN #20 tab 01/03/17 [Fioricet] Ibuprofen [Motrin] 600 mg PO Q6 PRN #15 tab 06/03/17 Methylprednisolone [Medrol Dose 4 mg PO ASDIR #21 mg 06/03/17 Pack (21 tabs)] tiZANidine [Zanaflex] 4 mg PO Q8H PRN #20 tab 06/03/17 - Allergies Allergies/Adverse Reactions: Allergies Allergy/AdvReac Type Severity Reaction Status Date / Time diphenhydramine HCl Allergy Intermediate SHORTNESS Verified 06/15/17 18:19 [From Benadryl] OF BREATH ciprofloxacin [From Cipro] Allergy RASH Verified 06/15/17 18:19 ciprofloxacin HCl Allergy RASH Verified 06/15/17 18:19 [From Cipro] hydromorphone HCl Allergy SHORTNESS Verified 06/15/17 18:19 [From Dilaudid] OF BREATH morphine Allergy RASH Verified 06/15/17 18:19 Penicillins Allergy RASH Verified 06/15/17 18:19 Review of Systems ROS Statement: Except As Marked, All Systems Reviewed And Found Negative Constitutional: Positive for: Chills, Weakness (generalized ), Other (fatigue). Negative for: Fever Eyes: Negative for: Other (focal weakness) Respiratory: Positive for: Other (dyspnea on exertion ) Gastrointestinal: Positive for: Nausea. Negative for: Vomiting Neurological: Negative for: Headache Physical Exam - Reviewed Nursing Documentation Reviewed: Yes Vital Signs Reviewed: Yes - Physical Exam Appears: Positive for: Well, No Acute Distress (but tired appearing) Head Exam: Positive for: ATRAUMATIC, NORMOCEPHALIC Skin: Positive for: Warm, Dry Eye Exam: Positive for: EOMI, PERRL ENT: Negative for: Pharyngeal Erythema, Tonsillar Exudate Neck: Positive for: Painless ROM, Supple Cardiovascular/Chest: Positive for: Regular Rate, Rhythm, Chest Non Tender. Negative for: Murmur Respiratory: Positive for: Normal Breath Sounds. Negative for: Wheezing Gastrointestinal/Abdominal: Positive for: Soft. Negative for: Tenderness Back: Positive for: Normal Inspection. Negative for: Decreased ROM Extremity: Positive for: Normal ROM. Negative for: Deformity Lymphatic: Negative for: Adenopathy Neurologic/Psych: Positive for: Alert. Negative for: Motor/Sensory Deficits - Laboratory Results Result Diagrams: 06/15/17 20:21 06/15/17 20:08 - ECG O2 Sat by Pulse Oximetry: 98 (RA) Pulse Ox Interpretation: Normal Medical Decision Making Medical Decision Making: Initial Impression: weakness. Differential diagnosis includes but not limited to : dehydration, hypothyroidism, heart failure, electrolyte abnormality and viral syndrome Initial Plan: --EKG --B-Type Natriuretic Peptide --Comp Metabolic Panel --Free T4 --Free T3 --Magnesium --Phosphorus --T3 --T4 --TSH --Troponin I --Urine dipstick --CBC w/ differential --reevaluation 1145p Labs unremarkable Pt feeling better and eager to go home. Scribe Attestation: Documented by Reji Taylor, acting as a scribe for Valorie Lloyd MD Provider Scribe Attestation: All medical record entries made by the Scribe were at my direction and personally dictated by me. I have reviewed the chart and agree that the record accurately reflects my personal performance of the history, physical exam, medical decision making, and the department course for this patient. I have also personally directed, reviewed, and agree with the discharge instructions and disposition. Disposition - Clinical Impression Clinical Impression: Bradycardia Counseled Patient/Family Regarding: Studies Performed, Diagnosis - Disposition Referrals: Archie Monge MD [Family Provider] - 06/16/17 Disposition: Routine/Home Disposition Time: 23:53 Condition: IMPROVED Additional Instructions: REST AND DRINK PLENTY OF HYDRATING FLUIDS FOLLOW UP WITH DR MONGE BY THE END OF THE WEEK Instructions: Weakness (ED)
[2017-06-15 23:01] LABS: ALB/GLOB RATIO 1.6 (1.0-2.1); ALKALINE PHOSPHATASE 73 U/L (38-126); ALT/SGPT 34 U/L (9-52); AST/SGOT 34 U/L (14-36); BILIRUBIN,TOTAL 0.5 mg/dl (0.2-1.3); BLOOD UREA NITROGEN 13 mg/dl (7-17); CALCIUM 9.8 mg/dL (8.4-10.2); CARBON DIOXIDE 30 mmol/L (22-30); CHLORIDE 102 mmol/L (98-107); GFR AFRICAN-AMERICAN > 60; GLUCOSE,RANDOM 98 mg/dL (65-105); MAGNESIUM 1.9 MG/DL (1.6-2.3); PHOSPHOROUS 4.1 mg/dl (2.5-4.5); POTASSIUM 4.2 MMOL/L (3.6-5.0); SODIUM 142 mmol/l (132-148); TOTAL PROTEIN 8.1 G/DL (6.3-8.2)
[2017-06-15 23:17] LABS: T4 8.15 ug/dl (5.5-11.0)
[2017-06-15 23:31] LABS: THYROID STIMULATING HORMONE 0.55 mIU/ML (0.46-4.68)
[2017-06-16 01:29] VITALS: BP 122/58; PULSE 68; RESP 17; TEMP 98.1; O2SAT 99
--- NOTE | 2017-06-16 11:19 | CARD ---
APPROVED REPORT EKG Measurement Heart [id number] <Conclusion> Sinus bradycardia Otherwise normal ECG
[2017-06-16 14:30] LABS: FT3 3.47 pg/mL (2.77-5.27)
== END 2017-06-16 01:05 | disposition home or self-care (01) ==
LOC: H.ER 17:57
DX: R00.1 Bradycardia, unspecified (principal); E03.9 Hypothyroidism, unspecified; E05.90 Thyrotoxicosis, unspecified without thyrotoxic crisis or storm; E78.00 Pure hypercholesterolemia, unspecified; F32.9 Major depressive disorder, single episode, unspecified; F41.9 Anxiety disorder, unspecified; I12.9 Hypertensive chronic kidney disease with stage 1 through stage 4 chronic kidney disease, or unspecified chronic kidney disease; K21.9 Gastro-esophageal reflux disease without esophagitis; Z88.0 Allergy status to penicillin

== ENCOUNTER 2017-11-28 11:46 | Emergency (ER) | payer MEDICARE, OTHER ==
[2017-11-28] MEDS ORDERED: Sodium Chloride 0.9% 1,000 ML IV STA (12:45)
--- NOTE | 2017-11-28 12:55 | ED PDOC ---
HPI: General Adult Time Seen by Provider: 11/28/17 12:12 Chief Complaint (Provider): Headache History Per: Patient History/Exam Limitations: no limitations Onset/Duration Of Symptoms: Days (x2) Current Symptoms Are (Timing): Still Present Additional Complaint(s): 56 year old female with a past medical history of migraines and hyperthyroidism presents to the ED complaining of frontal headache associated with mild nausea that improves slightly after taking fluoroset. Additionally, patient is complaining of mid to upper back pain that becomes worse with inspiration and movement. Denies fever, head injury, photophobia, cough, and shortness of breath. PMD: None Provided Past Medical History Reviewed: Historical Data, Nursing Documentation, Vital Signs - Medical History PMH: Anxiety, Arthritis, Back Problems (pain), Depression, Gastritis, GERD, HTN , Hypercholesterolemia, Hyperlipidemia, Hyperthyroidism, Hypothyroidism, Kidney Stones, Migraine, Osteoporosis (lower spine, left hip), Chronic Kidney Disease - Surgical History Surgical History: Appendectomy - Family History Family History: States: Unknown Family Hx, CAD (father), Hypertension - Home Medications Home Medications: Ambulatory Orders Medication Instructions Recorded ALPRAZolam [Xanax] 1 mg PO HS 01/20/16 Dexlansoprazole [Dexilant] 60 mg PO DAILY 12/14/16 Famotidine [Pepcid] 40 mg PO DAILY PRN 12/14/16 Lubiprostone [Amitiza] 8 mcg PO BID PRN 12/14/16 Naproxen Sodium [Naproxen Sodium 550 mg PO BID 12/14/16 Ds] Propylthiouracil [Propylthiouracil] 50 mg PO QPM 12/14/16 Acetaminophen/Butalbital/Caf 1 tab PO Q6 PRN #20 tab 01/03/17 [Fioricet] Ibuprofen [Motrin] 600 mg PO Q6 PRN #15 tab 06/03/17 Methylprednisolone [Medrol Dose 4 mg PO ASDIR #21 mg 06/03/17 Pack (21 tabs)] tiZANidine [Zanaflex] 4 mg PO Q8H PRN #20 tab 06/03/17 Ondansetron [Zofran] 4 mg PO Q8H #10 tab 11/28/17 - Allergies Allergies/Adverse Reactions: Allergies Allergy/AdvReac Type Severity Reaction Status Date / Time diphenhydramine HCl Allergy Intermediate SHORTNESS Verified 06/15/17 18:19 [From Benadryl] OF BREATH ciprofloxacin [From Cipro] Allergy RASH Verified 06/15/17 18:19 ciprofloxacin HCl Allergy RASH Verified 06/15/17 18:19 [From Cipro] hydromorphone HCl Allergy SHORTNESS Verified 06/15/17 18:19 [From Dilaudid] OF BREATH morphine Allergy RASH Verified 06/15/17 18:19 Penicillins Allergy RASH Verified 06/15/17 18:19 Review of Systems ROS Statement: Except As Marked, All Systems Reviewed And Found Negative Constitutional: Negative for: Fever, Other (head injury, photophobia) Respiratory: Negative for: Cough, Shortness of Breath Gastrointestinal: Positive for: Nausea (mild ) Musculoskeletal: Positive for: Back Pain (mid to upper ) Neurological: Positive for: Headache (frontal headache) Physical Exam - Reviewed Nursing Documentation Reviewed: Yes Vital Signs Reviewed: Yes - Physical Exam Appears: Positive for: Non-toxic, No Acute Distress Head Exam: Positive for: ATRAUMATIC, NORMOCEPHALIC Skin: Positive for: Normal Color, Warm, Dry Eye Exam: Positive for: Normal appearance, EOMI, PERRL ENT: Positive for: Normal ENT Inspection Neck: Positive for: Normal, Supple Cardiovascular/Chest: Positive for: Regular Rate, Rhythm. Negative for: Murmur Respiratory: Positive for: Normal Breath Sounds (equal breath sounds bilaterally ). Negative for: Respiratory Distress Gastrointestinal/Abdominal: Positive for: Normal Exam, Other (no thyroidmegaly or tenderness ) Back: Positive for: Normal Inspection Extremity: Positive for: Normal ROM. Negative for: Pedal Edema, Deformity Neurologic/Psych: Positive for: Alert, Oriented (x3). Negative for: Motor/ Sensory Deficits (no focal deficits) - Laboratory Results Result Diagrams: 11/28/17 12:53 11/28/17 13:20 Medical Decision Making Medical Decision Making: Time: 1253 Plan: -- CMP -- T4 -- Thyroid Stimulation -- CBC with differentials -- CXR Two Views -- Sodium Chloride IV 150 mls/hr -- Pepcid 140 IVP -- Pepcid 20mg/50ml Premix IVPB -- [Pepcid 20mg/50ml Premix] 40 mg in 100 ml IVPB -- Toradol 30 mg IVP -- Zofram 4 mg IVP Time: 1338 CXR RESULTS FINDINGS: LUNGS: No active pulmonary disease. PLEURA: No significant pleural effusion identified. No pneumothorax apparent. CARDIOVASCULAR: Normal. OSSEOUS STRUCTURES: No significant abnormalities. VISUALIZED UPPER ABDOMEN: Normal. OTHER FINDINGS: None. IMPRESSION: No active disease. Scribe Attestation: Documented by Kristel Talamantes, acting as a scribe for Dr. Freddy Walker MD. Provider Scribe Attestation: All medical record entries made by the Scribe were at my direction and personally dictated by me. I have reviewed the chart and agree that the record accurately reflects my personal performance of the history, physical exam, medical decision making, and the department course for this patient. I have also personally directed, reviewed, and agree with the discharge instructions and disposition. Disposition - Clinical Impression Clinical Impression: Headache, Hyperthyroidism, Muscle strain - Patient ED Disposition Is Patient to be Admitted: No Counseled Patient/Family Regarding: Studies Performed, Diagnosis, Need For Followup, Rx Given - Disposition Referrals: Archie Cooper MD [Family Provider] - Disposition: Routine/Home Disposition Time: 16:37 Condition: FAIR Prescriptions: Ondansetron [Zofran] 4 mg PO Q8H #10 tab Instructions: Muscle Strain, Headache, Adult, Hyperthyroidism (Overactive Thyroid)
[2017-11-28] MEDS ORDERED: Famotidine 20mg/50ml 40 MG/100 ML BAG IVPB ONE (13:00)
[2017-11-28] MEDS ORDERED: Famotidine 20mg/50ml 20 MG/50 ML BAG IVPB ONE ×2 (13:00→13:33)
[2017-11-28 13:30] LABS: BASO % 0.4 % (0.0-2.0); EOS % 0.3 % (0.0-4.0); LYMPH % 31.1 % (20.0-40.0); MEAN CELL VOLUME 84.9 fl (81.0-99.0); MEAN CORPUSCULAR HEMOGLOBIN 28.8 pg (27.0-31.0); MEAN CORPUSCULAR HGB CONC 33.9 g/dL (33.0-37.0); MEAN PLATELET VOLUME 8.9 fl (7.2-11.7); MONO # 0.3 K/uL (0.0-0.8); MONO % 5.1 % (0.0-10.0); NEUT % 63.1 % (50.0-75.0); NRBC % 0.1 % (0.0-0.0); RBC 4.87 Mil/uL (3.80-5.20); RED CELL DISTRIBUTION WIDTH 13.7 % (11.5-14.5); WHITE BLOOD COUNT 6.4 K/uL (4.8-10.8)
--- NOTE | 2017-11-28 13:40 | RAD ---
HISTORY: back pain COMPARISON: Comparison is made with prior study dated 10/12/2016 TECHNIQUE: Chest PA and lateral FINDINGS: LUNGS: No active pulmonary disease. PLEURA: No significant pleural effusion identified. No pneumothorax apparent. CARDIOVASCULAR: Normal. OSSEOUS STRUCTURES: No significant abnormalities. VISUALIZED UPPER ABDOMEN: Normal. OTHER FINDINGS: None. IMPRESSION: No active disease.
[2017-11-28 13:52] LABS: ALB/GLOB RATIO 1.3 (1.0-2.1); ALBUMIN 4.7 g/dL (3.5-5.0); ALT/SGPT 27 U/L (9-52); AST/SGOT 35 U/L (14-36); BLOOD UREA NITROGEN 12 mg/dl (7-17); CALCIUM 10.1 mg/dL (8.4-10.2); GFR AFRICAN-AMERICAN > 60; GFR NON-AFRICAN AMERICAN > 60
[2017-11-28 18:04] VITALS: RESP 18; TEMP 98.5
[2017-11-28 18:09] VITALS: BP 120/68; PULSE 62; O2SAT 99
== END 2017-11-28 16:45 | disposition home or self-care (01) ==
LOC: H.ER 11:46
DX: R51 Headache (principal); E03.9 Hypothyroidism, unspecified; M54.9 Dorsalgia, unspecified; E05.90 Thyrotoxicosis, unspecified without thyrotoxic crisis or storm; E78.00 Pure hypercholesterolemia, unspecified; F32.9 Major depressive disorder, single episode, unspecified; F41.9 Anxiety disorder, unspecified; I12.9 Hypertensive chronic kidney disease with stage 1 through stage 4 chronic kidney disease, or unspecified chronic kidney disease; Z88.0 Allergy status to penicillin
CPT/HCPCS: 71046; 80053; 84436; 84443; 85025; 96374; 96375; 99284; J1885; J2405; J7030

== ENCOUNTER 2017-12-05 10:13 | Emergency (ER) | payer MEDICARE, OTHER ==
[2017-12-05 10:16] VITALS: BMI 21.5
[2017-12-05 10:19] VITALS: TEMP 98.1
[2017-12-05 10:36] VITALS: O2SAT 98
[2017-12-05] MEDS ORDERED: Famotidine 20mg/50ml Premix IVPB STA (11:00)
[2017-12-05] MEDS ORDERED: Sodium Chloride 0.9% 1,000 ML IV STA (11:00)
[2017-12-05] MEDS ORDERED: Famotidine 20mg/50ml 40 MG/100 ML BAG IVPB ONE (11:11)
--- NOTE | 2017-12-05 11:20 | ED PDOC ---
HPI: Headache Time Seen by Provider: 12/05/17 10:33 Chief Complaint (Nursing): Headache Chief Complaint (Provider): Headache History Per: Patient History/Exam Limitations: no limitations Onset/Duration Of Symptoms: Days (14), Intermittent Episodes Associated Symptoms: denies: Blurred Vision, Nausea, Vomiting Additional Complaint(s): 56 years old female with history of migraines, thyroid disease and anxiety presents to the ED complaining of worsening headache for the past two weeks intermittently. Patient reports pain is mostly right sided and radiates to eye and then jaw including the occiput upper neck. She states she has taken Advil and Tylenol with no relief. Patient reports she has seen her PMD, Dr. Christine, for headaches in the past and last summer's MRI was normal. She states she has seen her field research assistant with no change in treatment. Patient denies any vision or hearing change, focal weakness, syncope, nausea, vomiting, chest pain or fever. PMD: Dr. Christine Past Medical History Reviewed: Historical Data, Nursing Documentation, Vital Signs Vital Signs: Last Vital Signs Temp 98.1 F 12/05/17 10:17 Pulse 67 12/05/17 10:17 Resp 16 12/05/17 10:17 BP 124/78 12/05/17 10:17 Pulse Ox 98 12/05/17 10:34 - Medical History PMH: Anxiety, Arthritis, Back Problems (pain), Depression, Gastritis, GERD, HTN , Hypercholesterolemia, Hyperlipidemia, Hyperthyroidism, Hypothyroidism, Kidney Stones, Migraine, Osteoporosis (lower spine, left hip), Chronic Kidney Disease - Surgical History Surgical History: Appendectomy Other surgeries: Hysterectomy and carpal tunnel - Family History Family History: States: Unknown Family Hx, CAD (father), Hypertension - Social History Current smoker - smoking cessation education provided: No Alcohol: None Drugs: Denies - Home Medications Home Medications: Ambulatory Orders Medication Instructions Recorded ALPRAZolam [Xanax] 1 mg PO HS 01/20/16 Dexlansoprazole [Dexilant] 60 mg PO DAILY 12/14/16 Famotidine [Pepcid] 40 mg PO DAILY PRN 12/14/16 Lubiprostone [Amitiza] 8 mcg PO BID PRN 12/14/16 Naproxen Sodium [Naproxen Sodium 550 mg PO BID 12/14/16 Ds] Propylthiouracil [Propylthiouracil] 50 mg PO QPM 12/14/16 Acetaminophen/Butalbital/Caf 1 tab PO Q6 PRN #20 tab 01/03/17 [Fioricet] Ibuprofen [Motrin] 600 mg PO Q6 PRN #15 tab 06/03/17 Methylprednisolone [Medrol Dose 4 mg PO ASDIR #21 mg 06/03/17 Pack (21 tabs)] tiZANidine [Zanaflex] 4 mg PO Q8H PRN #20 tab 06/03/17 Ondansetron [Zofran] 4 mg PO Q8H #10 tab 11/28/17 Acetaminophen/Butalbital/Caf 1 tab PO TID PRN #12 tab 12/05/17 [Fioricet] Nitrofurantoin Macrocrystals 100 mg PO BID #10 cap 12/05/17 [Macrobid] - Allergies Allergies/Adverse Reactions: Allergies Allergy/AdvReac Type Severity Reaction Status Date / Time diphenhydramine HCl Allergy Intermediate SHORTNESS Verified 12/05/17 10:34 [From Benadryl] OF BREATH ciprofloxacin [From Cipro] Allergy RASH Verified 12/05/17 10:34 ciprofloxacin HCl Allergy RASH Verified 12/05/17 10:34 [From Cipro] hydromorphone HCl Allergy SHORTNESS Verified 12/05/17 10:34 [From Dilaudid] OF BREATH morphine Allergy RASH Verified 12/05/17 10:34 Penicillins Allergy RASH Verified 12/05/17 10:34 Review of Systems ROS Statement: Except As Marked, All Systems Reviewed And Found Negative Constitutional: Negative for: Fever, Weakness Eyes: Negative for: Vision Change Cardiovascular: Negative for: Chest Pain Gastrointestinal: Negative for: Nausea, Vomiting Musculoskeletal: Positive for: Neck Pain Neurological: Positive for: Headache Physical Exam - Reviewed Nursing Documentation Reviewed: Yes Vital Signs Reviewed: Yes - Physical Exam Appears: Positive for: Non-toxic, No Acute Distress Head Exam: Positive for: ATRAUMATIC, NORMOCEPHALIC Skin: Positive for: Normal Color, Warm, Dry Eye Exam: Positive for: Normal appearance ENT: Positive for: Normal ENT Inspection Neck: Positive for: Normal, Supple Cardiovascular/Chest: Positive for: Regular Rate, Rhythm. Negative for: Murmur Respiratory: Positive for: Normal Breath Sounds. Negative for: Wheezing Back: Positive for: Normal Inspection Extremity: Positive for: Normal ROM Neurologic/Psych: Positive for: Alert, Oriented. Negative for: Motor/Sensory Deficits - Laboratory Results Result Diagrams: 12/05/17 11:40 12/05/17 11:40 - ECG O2 Sat by Pulse Oximetry: 98 (RA) Pulse Ox Interpretation: Normal Medical Decision Making Medical Decision Making: Time: 1100 Giving sever headache worsening the following is ordered --CT Head w/o Contrast --CMP --Troponin --CBC --PTT --PT --NaCl 1,000 ml IV --Pepcid 40 mg IVPB --Toradol 30 mg IV --Zofran 4 mg Time: [address] FINDINGS: HEMORRHAGE: No intracranial hemorrhage. BRAIN: No mass effect or edema. No atrophy or chronic microvascular ischemic changes. Left basilar ganglia lacunar infarction redemonstrated. VENTRICLES: Unremarkable. No hydrocephalus. CALVARIUM: Unremarkable. PARANASAL SINUSES: Unremarkable as visualized. No significant inflammatory changes. MASTOID AIR CELLS: Unremarkable as visualized. No inflammatory changes. OTHER FINDINGS: None. IMPRESSION: Normal CT of the Head. labs reviewed and unremarkable Received toradol, IVF, lidoderm patch for symptoms w improvement. Protonix, pepcid and carafate given for dyspepsia caused by toradol. D/w Dr Ibarra her neurologist rec decadron and valproate but she refused decadron considering gastric side effects [place] better without decadron UDip did show leuk esterate, she notes urine frequency recently, treat for UTI, possible trigger of migrane. Rx macrobid pending culture Improved markedly on DC home, smiling and happy. Scribe Attestation: Documented by Kaylan Mcgrath, acting as a scribe for Zacarias Hernandez MD. Provider Scribe Attestation: All medical record entries made by the Scribe were at my direction and personally dictated by me. I have reviewed the chart and agree that the record accurately reflects my personal performance of the history, physical exam, medical decision making, and the department course for this patient. I have also personally directed, reviewed, and agree with the discharge instructions and disposition. Disposition - Clinical Impression Clinical Impression: Acute headache, UTI (urinary tract infection) - Patient ED Disposition Is Patient to be Admitted: No Counseled Patient/Family Regarding: Studies Performed, Diagnosis, Need For Followup, Rx Given - Disposition Referrals: Krishan Ibarra MD [Staff Provider] - Disposition: Routine/Home Disposition Time: 15:30 Condition: STABLE Additional Instructions: See Dr Ibarra for followup and further testing. Return to ER for any new or change in symptoms. Take macrobid 2x daily for UTI, followup urine culture result in 2-3 days. You will be called if you need your antibiotic changed. Prescriptions: Acetaminophen/Butalbital/Caf [Fioricet] 1 tab PO TID PRN #12 tab PRN Reason: Headache Nitrofurantoin Macrocrystals [Macrobid] 100 mg PO BID #10 cap Instructions: Migraine Headache (DC), Acute Headache (ED), Urinary Tract Infections in Adults Forms: [employer] (Armenian)
[2017-12-05 11:55] LABS: BASO % 0.4 % (0.0-2.0); EOS % 0.5 % (0.0-4.0); HEMOGLOBIN 13.6 g/dL (12.0-16.0); LYMPH # 1.1 K/uL (1.0-4.3); LYMPH % 21.4 % (20.0-40.0); MEAN CELL VOLUME 85.3 fl (81.0-99.0); MEAN CORPUSCULAR HEMOGLOBIN 28.5 pg (27.0-31.0); MEAN CORPUSCULAR HGB CONC 33.4 g/dL (33.0-37.0); MEAN PLATELET VOLUME 9.1 fl (7.2-11.7); MONO # 0.3 K/uL (0.0-0.8); MONO % 5.4 % (0.0-10.0); NEUT # 3.6 K/uL (1.8-7.0); NEUT % 72.3 % (50.0-75.0); NRBC % 0.1 % (0.0-0.0); RBC 4.76 Mil/uL (3.80-5.20); RED CELL DISTRIBUTION WIDTH 13.8 % (11.5-14.5); WHITE BLOOD COUNT 4.9 K/uL (4.8-10.8)
--- NOTE | 2017-12-05 12:23 | CT ---
PROCEDURE: CT HEAD WITHOUT CONTRAST. HISTORY: r/o ICH COMPARISON: CT head dated 01/03/2017. TECHNIQUE: Axial computed tomography images were obtained through the head/brain without intravenous contrast. Radiation dose: Total exam DLP = 747.8 mGy-cm. This CT exam was performed using one or more of the following dose reduction techniques: Automated exposure control, adjustment of the mA and/or kV according to patient size, and/or use of iterative reconstruction technique. FINDINGS: HEMORRHAGE: No intracranial hemorrhage. BRAIN: No mass effect or edema. No atrophy or chronic microvascular ischemic changes. Left basilar ganglia lacunar infarction redemonstrated. VENTRICLES: Unremarkable. No hydrocephalus. CALVARIUM: Unremarkable. PARANASAL SINUSES: Unremarkable as visualized. No significant inflammatory changes. MASTOID AIR CELLS: Unremarkable as visualized. No inflammatory changes. OTHER FINDINGS: None. IMPRESSION: Normal CT of the Head.
[2017-12-05 12:24] LABS: ALB/GLOB RATIO 1.3 (1.0-2.1); ALBUMIN 4.4 g/dL (3.5-5.0); ALT/SGPT 33 U/L (9-52); AST/SGOT 29 U/L (14-36); BLOOD UREA NITROGEN 10 mg/dl (7-17); CALCIUM 9.7 mg/dL (8.4-10.2); GFR AFRICAN-AMERICAN > 60; GFR NON-AFRICAN AMERICAN > 60
[2017-12-05 12:30] LABS: PARTIAL THROMBOPLASTIN TIME 26.5 Seconds (25.6-37.1); PROTHROMBIN TIME 10.9 Seconds (9.8-13.1)
[2017-12-05] MEDS ORDERED: Alum-Mag Hydrox-Simethicone Susp (30 mL) PO ONE (13:13)
[2017-12-05] MEDS ORDERED: Alum-Mag Hydrox-Simethicone Susp (30 mL) ONE (13:34)
[2017-12-05] MEDS ORDERED: Dexamethasone 8 MG in Dextrose 5% In Water 50 ML IV STA (14:05)
[2017-12-05] MEDS ORDERED: Valproate 500 MG in Sodium Chloride 0.9% 100 ML IVPB ONE (14:05)
[2017-12-05] MEDS ORDERED: Dexamethasone 4 mg/1 ml IVP ONE (14:15)
[2017-12-05] MEDS ORDERED: Lidocaine 5% Patch TD STA (14:31)
[2017-12-05] MEDS ORDERED: Lidocaine 5% Patch TD ONE (14:36)
[2017-12-05] MEDS ORDERED: Sucralfate 1 gm/10 ml Oral Susp UD PO STA (15:23)
[2017-12-05 17:18] VITALS: BP 128/72; PULSE 70; RESP 18
== END 2017-12-05 16:30 | disposition home or self-care (01) ==
LOC: H.ER 10:13
DX: R51 Headache (principal); N39.0 Urinary tract infection, site not specified; E03.9 Hypothyroidism, unspecified; E05.90 Thyrotoxicosis, unspecified without thyrotoxic crisis or storm; E78.00 Pure hypercholesterolemia, unspecified; F32.9 Major depressive disorder, single episode, unspecified; F41.9 Anxiety disorder, unspecified; I12.9 Hypertensive chronic kidney disease with stage 1 through stage 4 chronic kidney disease, or unspecified chronic kidney disease; Z88.0 Allergy status to penicillin; K21.9 Gastro-esophageal reflux disease without esophagitis
CPT/HCPCS: 70450; 80053; 84484; 85025; 85610; 85730; 87086; 96374; 99285; C9113; J1885; J7030

== ENCOUNTER 2018-01-05 16:11 | Emergency (ER) | payer MEDICARE, OTHER ==
[2018-01-05 16:11] VITALS: BMI 21.5
[2018-01-05 16:46] VITALS: RESP 18
[2018-01-05 17:50] LABS: BASO % 0.8 % (0.0-2.0); HEMOGLOBIN 12.5 g/dL (12.0-16.0); LYMPH # 2.1 K/uL (1.0-4.3); LYMPH % 41.4 % (20.0-40.0); MEAN CORPUSCULAR HEMOGLOBIN 28.8 pg (27.0-31.0); MEAN CORPUSCULAR HGB CONC 33.9 g/dL (33.0-37.0); MEAN PLATELET VOLUME 9.4 fl (7.2-11.7); MONO # 0.3 K/uL (0.0-0.8); MONO % 6.5 % (0.0-10.0); NEUT # 2.5 K/uL (1.8-7.0); NEUT % 50.3 % (50.0-75.0); RBC 4.34 Mil/uL (3.80-5.20); RED CELL DISTRIBUTION WIDTH 13.6 % (11.5-14.5)
--- NOTE | 2018-01-05 18:23 | ED PDOC ---
HPI: Abdomen Time Seen by Provider: 01/05/18 16:53 Chief Complaint (Nursing): Abdominal Pain Chief Complaint (Provider): Abdominal Pain History Per: Patient History/Exam Limitations: no limitations Outside of [place] travel?: Yes Current Symptoms Are (Timing): Still Present Location Of Pain/Discomfort: RUQ, Epigastric Exacerbating Factors: Food Additional Complaint(s): 57 year old female, with a past medical hx of GERD and peptic ulcer disease, presents to the ED complaining of RUQ and epigastric pain. Patient reports she had an endoscopy done in 2013 which was normal. She reports having a HIDA scan in 2009, which showed "slow gallbladder." She states she recently returned from [place] and reports sharp pain associated with nausea after eating greasy food. Denies fever, vomiting, diarrhea, and urinary symptoms. PMD: Archie Orellana Past Medical History Reviewed: Historical Data, Nursing Documentation, Vital Signs Vital Signs: Last Vital Signs Temp 98.3 F 01/05/18 16:38 Pulse 78 01/05/18 16:40 Resp 18 01/05/18 16:40 BP 115/66 01/05/18 16:40 Pulse Ox 99 01/05/18 19:34 - Medical History PMH: Anxiety, Arthritis, Back Problems (pain), Depression, Gastritis, GERD, HTN , Hypercholesterolemia, Hyperlipidemia, Hyperthyroidism, Hypothyroidism, Kidney Stones, Migraine, Osteoporosis (lower spine, left hip), Chronic Kidney Disease - Surgical History Surgical History: Appendectomy - Family History Family History: States: Unknown Family Hx, CAD (father), Hypertension - Social History Current smoker - smoking cessation education provided: No Ex-Smoker (has not smoked in the last 12 months): Yes Alcohol: None Drugs: Denies - Home Medications Home Medications: Ambulatory Orders Medication Instructions Recorded ALPRAZolam [Xanax] 1 mg PO HS 01/20/16 Dexlansoprazole [Dexilant] 60 mg PO DAILY 12/14/16 Famotidine [Pepcid] 40 mg PO DAILY PRN 12/14/16 Lubiprostone [Amitiza] 8 mcg PO BID PRN 12/14/16 Naproxen Sodium [Naproxen Sodium 550 mg PO BID 12/14/16 Ds] Propylthiouracil [Propylthiouracil] 50 mg PO QPM 12/14/16 Acetaminophen/Butalbital/Caf 1 tab PO Q6 PRN #20 tab 01/03/17 [Fioricet] Ibuprofen [Motrin] 600 mg PO Q6 PRN #15 tab 06/03/17 Methylprednisolone [Medrol Dose 4 mg PO ASDIR #21 mg 06/03/17 Pack (21 tabs)] tiZANidine [Zanaflex] 4 mg PO Q8H PRN #20 tab 06/03/17 Ondansetron [Zofran] 4 mg PO Q8H #10 tab 11/28/17 Acetaminophen/Butalbital/Caf 1 tab PO TID PRN #12 tab 12/05/17 [Fioricet] Nitrofurantoin Macrocrystals 100 mg PO BID #10 cap 12/05/17 [Macrobid] - Allergies Allergies/Adverse Reactions: Allergies Allergy/AdvReac Type Severity Reaction Status Date / Time diphenhydramine HCl Allergy Intermediate SHORTNESS Verified 12/05/17 10:34 [From Benadryl] OF BREATH ciprofloxacin [From Cipro] Allergy RASH Verified 12/05/17 10:34 ciprofloxacin HCl Allergy RASH Verified 12/05/17 10:34 [From Cipro] hydromorphone HCl Allergy SHORTNESS Verified 12/05/17 10:34 [From Dilaudid] OF BREATH morphine Allergy RASH Verified 12/05/17 10:34 Penicillins Allergy RASH Verified 12/05/17 10:34 Review of Systems ROS Statement: Except As Marked, All Systems Reviewed And Found Negative Constitutional: Negative for: Fever Gastrointestinal: Positive for: Nausea, Abdominal Pain. Negative for: Vomiting , Diarrhea Genitourinary Female: Negative for: Dysuria, Hematuria, Vaginal Discharge, Vaginal Bleeding Physical Exam - Reviewed Nursing Documentation Reviewed: Yes Vital Signs Reviewed: Yes - Physical Exam Comments: GENERAL APPEARANCE: Patient is awake, alert, oriented x 3, in no distress. SKIN: Warm, dry; (-) cyanosis. EYES: (-) conjunctival pallor, (-) scleral icterus. ENMT: Mucous membranes moist. NECK: (-) tenderness, (-) stiffness, (-) lymphadenopathy. CHEST AND RESPIRATORY: (-) rales, (-) rhonchi, (-) wheezes; breath sounds equal bilaterally. HEART AND CARDIOVASCULAR: (-) irregularity; (-) murmur, (-) gallop. ABDOMEN AND GI: (-) distention. Bowel sounds active; (+) mild tenderness in epigastric and RUQ. (-) Wright's Sign, (-) guarding, (-) rebound, (-) palpable masses, (-) CVA tenderness. EXTREMITIES: (-) deformity, (-) edema, (+) distal pulses. NEURO AND PSYCH: Mental status as above; (-) focal findings. - Laboratory Results Result Diagrams: 01/05/18 17:44 01/05/18 17:44 - ECG O2 Sat by Pulse Oximetry: 99 (RA) Pulse Ox Interpretation: Normal Medical Decision Making Medical Decision Making: Initial Impression: Abdominal pain, r/o biliary colic Initial Plan: CMP Lipase ED urine dipstick CBC Pepcid 20mg IV US Abd Urine dip negative Labs reviewed and wnl. US abdomen : FINDINGS: LIVER: Measures 13.1 cm in length. Normal echogenicity of the liver parenchyma. No mass. No intrahepatic bile duct dilatation. GALLBLADDER: Unremarkable. No gallstones. COMMON BILE DUCT: Measures 2 mm. No stones. No dilatation. PANCREAS: Unremarkable as visualized. No mass. No ductal dilatation. RIGHT KIDNEY: Measures 9.4 x 3.4 x 3.2 cm in length. Normal echogenicity. No calculus, mass, or hydronephrosis. AORTA: No aneurysmal dilatation. IVC: Unremarkable. OTHER FINDINGS: None . IMPRESSION: Unremarkable right upper quadrant ultrasound. On re-evaluation, patient reports improvement of symptoms, denies any abdominal pain or nausea at this time. On exam, patient remains AAOx3, in no acute distress. Abdomen soft, non-tender. Diagnostic results d/w the patient in great detail. Diagnosis of dyspepsia d/w the patient. Patient states that she has a f/u appointment scheduled with her GI MD on 01/21/18. Based on history, exam and diagnostic results, plan will be for outpatient follow up. Patient instructed to follow-up with pmd in 1-2 days without fail. Advised to take medication as prescribed. Return to the emergency room at any time for any new or worsening symptoms. Patient states she fully agrees with and understands discharge instructions. States that she agrees with the plan and disposition. Verbalized and repeated discharge instructions and plan. I have given the patient opportunity to ask any additional questions. Scribe Attestation: Documented by Bull Cerrato acting as a scribe for Sherly CUNHA. Provider Scribe Attestation: All medical record entries made by the Scribe were at my direction and personally dictated by me. I have reviewed the chart and agree that the record accurately reflects my personal performance of the history, physical exam, medical decision making, and the department course for this patient. I have also personally directed, reviewed, and agree with the discharge instructions and disposition. Disposition - Clinical Impression Clinical Impression: Abdominal pain, Dyspepsia - Patient ED Disposition Is Patient to be Admitted: No Counseled Patient/Family Regarding: Studies Performed, Diagnosis, Need For Followup - Disposition Disposition: Routine/Home Disposition Time: 19:30 Condition: STABLE Additional Instructions: Thank you for letting us take care of you today. You were treated for dyspepsia. The emergency medical care you received today was directed at your acute symptoms. Return to the Emergency Department if your symptoms worsen, do not improve, or if you have any other problems. Please contact your doctor in 2 days for re-evaluation and follow up. Bring any paperwork you were given at discharge with you along with any medications you are taking to your follow up visit. Our treatment cannot replace ongoing medical care by a primary care provider (PCP) outside of the emergency department. Thank you for allowing the [email or web address] team to be part of your care today. Instructions: Dyspepsia (DC) Forms: [employer] (Lithuanian)
--- NOTE | 2018-01-05 18:48 | US ---
Date of service: 01/05/2018 HISTORY: RUQ pain COMPARISON: None. TECHNIQUE: Sonographic evaluation of the right upper quadrant of the abdomen. FINDINGS: LIVER: Measures 13.1 cm in length. Normal echogenicity of the liver parenchyma. No mass. No intrahepatic bile duct dilatation. GALLBLADDER: Unremarkable. No gallstones. COMMON BILE DUCT: Measures 2 mm. No stones. No dilatation. PANCREAS: Unremarkable as visualized. No mass. No ductal dilatation. RIGHT KIDNEY: Measures 9.4 x 3.4 x 3.2 cm in length. Normal echogenicity. No calculus, mass, or hydronephrosis. AORTA: No aneurysmal dilatation. IVC: Unremarkable. OTHER FINDINGS: None . IMPRESSION: Unremarkable right upper quadrant ultrasound.
[2018-01-05 18:53] LABS: ALBUMIN 4.6 g/dL (3.5-5.0); BLOOD UREA NITROGEN 12 mg/dl (7-17); CALCIUM 9.4 mg/dL (8.4-10.2); GFR AFRICAN-AMERICAN > 60; GFR NON-AFRICAN AMERICAN > 60
[2018-01-05 18:54] LABS: ALB/GLOB RATIO 1.4 (1.0-2.1); ALT/SGPT 22 U/L (9-52); AST/SGOT 45 U/L (14-36); LIPASE 158 U/L (23-300)
[2018-01-05 19:58] VITALS: BP 145/77; PULSE 55; TEMP 97.7; O2SAT 98
== END 2018-01-05 19:59 | disposition home or self-care (01) ==
LOC: H.ER 16:11
DX: K21.9 Gastro-esophageal reflux disease without esophagitis (principal); Z86.59 Personal history of other mental and behavioral disorders; I12.9 Hypertensive chronic kidney disease with stage 1 through stage 4 chronic kidney disease, or unspecified chronic kidney disease; N18.9 Chronic kidney disease, unspecified; Z87.442 Personal history of urinary calculi; Z88.0 Allergy status to penicillin; Z87.891 Personal history of nicotine dependence; M81.0 Age-related osteoporosis without current pathological fracture; E03.9 Hypothyroidism, unspecified

== ENCOUNTER 2018-01-27 16:17 | Emergency (ER) | payer MEDICARE, OTHER ==
[2018-01-27 16:17] VITALS: BMI 21.5
[2018-01-27 16:29] VITALS: TEMP 98.3
[2018-01-27] MEDS ORDERED: Sodium Chloride 0.9% 1,000 ML IV STA (17:07)
[2018-01-27] MEDS ORDERED: Iohexol 240 (50 ml) PO ONE (17:10)
--- NOTE | 2018-01-27 17:18 | ED PDOC ---
HPI: Abdomen Time Seen by Provider: 01/27/18 16:40 Chief Complaint (Nursing): Abdominal Pain Chief Complaint (Provider): Abdominal Pain History Per: Patient History/Exam Limitations: no limitations Onset/Duration Of Symptoms: Days Current Symptoms Are (Timing): Still Present Location Of Pain/Discomfort: RUQ Additional Complaint(s): 57 y/o female presents to the ED complaining of chronic right upper quadrant abdominal pain associated with nausea. Patient states pain is similar to those she has been evaluated for here in the past. Patient states on previous visit here an ultrasound was performed and resulted negative. Patient states she went to a follow up with GI and pain management who ordered an x-ray of her ribs of which she is unsure of the results. Patient has had prior endoscopy and other scans in the past. Otherwise: (-) fever, (-) cough, (-) urinary symptoms, (-) shortness of breath. PMD: Archie Cooper Past Medical History Reviewed: Historical Data, Nursing Documentation, Vital Signs Vital Signs: Last Vital Signs Temp 98.3 F 01/27/18 16:29 Pulse 58 L 01/27/18 16:29 Resp 16 01/27/18 16:29 BP 103/63 01/27/18 16:29 Pulse Ox 99 01/27/18 19:09 - Medical History PMH: Anxiety, Arthritis, Back Problems (pain), Depression, Gastritis, GERD, HTN , Hypercholesterolemia, Hyperlipidemia, Hyperthyroidism, Hypothyroidism, Kidney Stones, Migraine, Osteoporosis (lower spine, left hip), Chronic Kidney Disease - Surgical History Surgical History: Appendectomy, Endoscopy - Family History Family History: States: Unknown Family Hx, CAD (father), Hypertension - Home Medications Home Medications: Ambulatory Orders Medication Instructions Recorded ALPRAZolam [Xanax] 1 mg PO HS 01/20/16 Dexlansoprazole [Dexilant] 60 mg PO DAILY 12/14/16 Famotidine [Pepcid] 40 mg PO DAILY PRN 12/14/16 Lubiprostone [Amitiza] 8 mcg PO BID PRN 12/14/16 Naproxen Sodium [Naproxen Sodium 550 mg PO BID 12/14/16 Ds] Propylthiouracil [Propylthiouracil] 50 mg PO QPM 12/14/16 Acetaminophen/Butalbital/Caf 1 tab PO Q6 PRN #20 tab 01/03/17 [Fioricet] Ibuprofen [Motrin] 600 mg PO Q6 PRN #15 tab 06/03/17 Methylprednisolone [Medrol Dose 4 mg PO ASDIR #21 mg 06/03/17 Pack (21 tabs)] tiZANidine [Zanaflex] 4 mg PO Q8H PRN #20 tab 06/03/17 Ondansetron [Zofran] 4 mg PO Q8H #10 tab 11/28/17 Acetaminophen/Butalbital/Caf 1 tab PO TID PRN #12 tab 12/05/17 [Fioricet] Nitrofurantoin Macrocrystals 100 mg PO BID #10 cap 12/05/17 [Macrobid] - Allergies Allergies/Adverse Reactions: Allergies Allergy/AdvReac Type Severity Reaction Status Date / Time diphenhydramine HCl Allergy Intermediate SHORTNESS Verified 01/27/18 16:31 [From Benadryl] OF BREATH ciprofloxacin [From Cipro] Allergy RASH Verified 01/27/18 16:31 ciprofloxacin HCl Allergy RASH Verified 01/27/18 16:31 [From Cipro] hydromorphone HCl Allergy SHORTNESS Verified 01/27/18 16:31 [From Dilaudid] OF BREATH morphine Allergy RASH Verified 01/27/18 16:31 Penicillins Allergy RASH Verified 01/27/18 16:31 Review of Systems ROS Statement: Except As Marked, All Systems Reviewed And Found Negative Constitutional: Negative for: Fever Respiratory: Negative for: Cough, Shortness of Breath Gastrointestinal: Positive for: Nausea, Abdominal Pain (right upper quadrant) Genitourinary Female: Negative for: Dysuria, Frequency, Hematuria Physical Exam - Reviewed Nursing Documentation Reviewed: Yes Vital Signs Reviewed: Yes - Physical Exam Comments: GENERAL APPEARANCE: Patient is awake, alert, oriented x 3, in no acute distress. SKIN: Warm, dry; (-) cyanosis. EYES: (-) conjunctival pallor, (-) scleral icterus. ENMT: Mucous membranes moist. NECK: (-) tenderness, (-) stiffness, (-) lymphadenopathy. CHEST AND RESPIRATORY: (-) rales, (-) rhonchi, (-) wheezes; breath sounds equal bilaterally. HEART AND CARDIOVASCULAR: (-) irregularity; (-) murmur, (-) gallop. ABDOMEN AND GI: (-) distention. Bowel sounds active; (-) tenderness. (-) guarding, (-) rebound, (-) palpable masses, (-) CVA tenderness. EXTREMITIES: (-) deformity, (-) edema, (+) distal pulses. NEURO AND PSYCH: Mental status as above; (-) focal findings. - Laboratory Results Result Diagrams: 01/27/18 17:30 01/27/18 17:30 - ECG O2 Sat by Pulse Oximetry: 99 (RA) Pulse Ox Interpretation: Normal Medical Decision Making Medical Decision Making: Time: 1710 Plan: -- CT Abd/Pelvis PO & IV Contrast -- CMP -- Lipase -- ED Urine Dipstick -- CBC with differentials -- CXR Two Views -- Sodium Chloride IV 200 mls/hr -- Iohexol 50 ml PO -- Pepcid 20 mg IVP -- Toradol 30 mg IVP -- Zofran Inj 4 mg IVP -- IV Insertion CXR : NAD, as read by [facility]. 1899 On reevaluation, patient reports that she is having difficulty tolerating by mouth contrast, she states that she is having stomach irritation from the IV Toradol, denies nausea, however she did drink three fourths of the oral contrast. Patient given GI cocktail PO. CT still pending. 1999 Case endorsed to [facility] pending CT. Scribe Attestation: Documented by Kristel Talamantes acting as a scribe for Sherly Flaherty PA-C. Provider Scribe Attestation: All medical record entries made by the Scribe were at my direction and personally dictated by me. I have reviewed the chart and agree that the record accurately reflects my personal performance of the history, physical exam, medical decision making, and the department course for this patient. I have also personally directed, reviewed, and agree with the discharge instructions and disposition. Disposition - Clinical Impression Clinical Impression: Abdominal pain - Disposition Disposition: Transfer of Care (Case endorsed to [facility] pending CT) Disposition Time: 20:00 Condition: STABLE Forms: [employer] [facility] (Kyrgyz)
[2018-01-27] MEDS ORDERED: Iohexol 240 (50 ml) ONE (17:39)
[2018-01-27 17:40] LABS: BASO % 0.4 % (0.0-2.0); EOS # 0.1 K/uL (0.0-0.7); EOS % 0.9 % (0.0-4.0); HEMOGLOBIN 12.9 g/dL (12.0-16.0); LYMPH # 1.7 K/uL (1.0-4.3); LYMPH % 29.8 % (20.0-40.0); MEAN CELL VOLUME 86.3 fl (81.0-99.0); MEAN CORPUSCULAR HEMOGLOBIN 28.4 pg (27.0-31.0); MEAN CORPUSCULAR HGB CONC 32.9 g/dL (33.0-37.0); MEAN PLATELET VOLUME 9.6 fl (7.2-11.7); MONO # 0.4 K/uL (0.0-0.8); MONO % 6.5 % (0.0-10.0); NEUT # 3.6 K/uL (1.8-7.0); NEUT % 62.4 % (50.0-75.0); RBC 4.55 Mil/uL (3.80-5.20); RED CELL DISTRIBUTION WIDTH 13.7 % (11.5-14.5); WHITE BLOOD COUNT 5.7 K/uL (4.8-10.8)
[2018-01-27 17:54] LABS: ALB/GLOB RATIO 1.5 (1.0-2.1); ALBUMIN 4.5 g/dL (3.5-5.0); ALT/SGPT 32 U/L (9-52); AST/SGOT 39 U/L (14-36); BLOOD UREA NITROGEN 13 mg/dl (7-17); CALCIUM 9.6 mg/dL (8.4-10.2); GFR AFRICAN-AMERICAN > 60; GFR NON-AFRICAN AMERICAN > 60; LIPASE 140 U/L (23-300)
--- NOTE | 2018-01-27 18:00 | RAD ---
Date of service: 01/27/2018 HISTORY: RUQ pain COMPARISON: Comparison is made with 11/28/2017 TECHNIQUE: Chest PA and lateral FINDINGS: LUNGS: No active pulmonary disease. PLEURA: No significant pleural effusion identified. No pneumothorax apparent. CARDIOVASCULAR: Normal. OSSEOUS STRUCTURES: No significant abnormalities. VISUALIZED UPPER ABDOMEN: Normal. OTHER FINDINGS: None. IMPRESSION: No active disease.
[2018-01-27] MEDS ORDERED: Alum-Mag Hydrox-Simethicone Susp (30 mL) PO STA (19:05)
[2018-01-27] MEDS ORDERED: Atrop/Hyos/Scop/PhenoB Elixir PO ONE (19:06)
[2018-01-27] MEDS ORDERED: Alum-Mag Hydrox-Simethicone Susp (30 mL) ONE (19:14)
[2018-01-27] MEDS ORDERED: Iohexol 300 100 ML IJ ONE (19:37)
[2018-01-27] MEDS ORDERED: Sodium Chloride 0.9% 0 ML IV ONE (19:37)
--- NOTE | 2018-01-27 20:17 | ED PDOC ---
- Laboratory Results Result Diagrams: 01/27/18 17:30 01/27/18 17:30 - ECG O2 Sat by Pulse Oximetry: 99 (RA) Pulse Ox Interpretation: Normal Medical Decision Making Medical Decision Making: Case was signed out to policy writer typist from [facility] pending CT results. CT: Possible colitis, no other finding, as per v-rad report Carafate PO given. Patient aware of all diagnostic testing results. All questions answered. Patient has had ongoing abdominal issues for about one month. She is under the care of pig farm manager Dr. Christensen and has follow-up next week. Patient has outpatient colonoscopy scheduled for February. Patient currently takes dexilant daily. Patient also has Bentyl at home for pain. Advised Tylenol as well for pain and prescription for Carafate also given. Patient given copy of labs, TSH is low, patient has history of hyperthyroidism but has not been on a medication for about 3 weeks. She has follow-up tomorrow with her blasting contract man and will discuss lab results with blasting contract man at that time. Patient verbalized understanding of the need for close follow-up and is aware she can return any time to emergency room if acutely worse. Disposition - Clinical Impression Clinical Impression: Abdominal pain, GERD (gastroesophageal reflux disease) - POA Present On Arrival: None - Disposition Referrals: Jeremy Christensen [Staff Provider] - Meghna Gibson MD [Medical Doctor] - Disposition: Routine/Home Disposition Time: 21:53 Condition: STABLE Additional Instructions: Continue with dexilant and bentyl as prescribed. Take Carafate as directed as needed. Tylenol for pain as needed. Follow bland diet. Follow-up with pig farm manager and with blasting contract man. Return to emergency room any time if acutely worse. Prescriptions: Sucralfate [Carafate] 1 gm PO QID #60 tab Instructions: Acid Reflux (Gastroesophageal Reflux Disease), Adult (DC), Stomach Ache and Stomach Upset, [place] Diet Forms: [employer] (Latvian)
[2018-01-27] MEDS ORDERED: Sucralfate 1 gm/10 ml Oral Susp UD ONE (21:38)
[2018-01-27 22:12] VITALS: BP 135/57; PULSE 53; RESP 18; O2SAT 100
--- NOTE | 2018-01-28 10:01 | CT ---
Date of service: 01/27/2018 PROCEDURE: CT Abdomen and Pelvis with contrast HISTORY: chronic RUQ pain R lower rib pain COMPARISON: Abdomen pelvis CT without contrast 04/12/2017. TECHNIQUE: Contrast dose: Patient preferred not to receive intravenous contrast. Radiation dose: Total exam DLP = 231.41 mGy-cm. This CT exam was performed using one or more of the following dose reduction techniques: Automated exposure control, adjustment of the mA and/or kV according to patient size, and/or use of iterative reconstruction technique. FINDINGS: LOWER THORAX: Borderline cardiomegaly. LIVER: Unremarkable. No gross lesion or ductal dilatation. GALLBLADDER AND BILE DUCTS: Unremarkable. PANCREAS: Unremarkable. No gross lesion or ductal dilatation. SPLEEN: Unremarkable. ADRENALS: Unremarkable. No mass. KIDNEYS AND URETERS: Unremarkable. No hydronephrosis. No solid mass. VASCULATURE: Unremarkable. No aortic aneurysm. BOWEL: The mid to distal segment of the transverse colon is collapsed and is limited evaluation. Thickening of the meadows is suspected though difficult to completely prove. Similar pattern seen at the sigmoid colon. This is a nonspecific pattern. Underlying colitis not excluded. No significant findings seen in the right upper quadrant bowel segments. APPENDIX: Normal appendix. PERITONEUM: Unremarkable. No free fluid. No free air. LYMPH NODES: Unremarkable. No enlarged lymph nodes. BLADDER: Unremarkable. REPRODUCTIVE: Prior hysterectomy reiterated. BONES: No acute fracture. OTHER FINDINGS: None. IMPRESSION: 1. Potential colitis affecting mid to distal transverse and sigmoid colonic segments. The appearance is limited due to collapse of these segments of colon. Further, the pattern does not fit the clinical history of chronic right upper quadrant pain. 2. No additional potential acute abdominal or pelvic findings. 3. Prior hysterectomy.
== END 2018-01-27 22:11 | disposition home or self-care (01) ==
LOC: H.ER 16:17
DX: K21.9 Gastro-esophageal reflux disease without esophagitis (principal); R10.11 Right upper quadrant pain; E03.9 Hypothyroidism, unspecified; E05.90 Thyrotoxicosis, unspecified without thyrotoxic crisis or storm; E78.00 Pure hypercholesterolemia, unspecified; I12.9 Hypertensive chronic kidney disease with stage 1 through stage 4 chronic kidney disease, or unspecified chronic kidney disease; Z88.0 Allergy status to penicillin; Z90.710 Acquired absence of both cervix and uterus
CPT/HCPCS: 71046; 74176; 80053; 83690; 84443; 85025; 96374; 96375; 99284; J1885; J2405; J7030; Q9966

== ENCOUNTER 2018-02-15 19:49 | Emergency (ER) | payer MEDICARE, OTHER ==
[2018-02-15 19:49] VITALS: BMI 21.5
[2018-02-15 20:17] VITALS: O2SAT 99
[2018-02-15] MEDS ORDERED: Atrop/Hyos/Scop/PhenoB Elixir PO STA (21:15)
[2018-02-15] MEDS ORDERED: Alum-Mag Hydrox-Simethicone Susp (30 mL) PO STA (21:15)
[2018-02-15 21:26] LABS: BASO % 0.6 % (0.0-2.0); EOS # 0.1 K/uL (0.0-0.7); EOS % 1.2 % (0.0-4.0); HEMOGLOBIN 13.6 g/dL (12.0-16.0); LYMPH # 2.1 K/uL (1.0-4.3); MEAN CELL VOLUME 85.4 fl (81.0-99.0); MEAN CORPUSCULAR HEMOGLOBIN 28.7 pg (27.0-31.0); MEAN CORPUSCULAR HGB CONC 33.7 g/dL (33.0-37.0); MEAN PLATELET VOLUME 9.7 fl (7.2-11.7); MONO # 0.3 K/uL (0.0-0.8); MONO % 6.7 % (0.0-10.0); NEUT # 2.5 K/uL (1.8-7.0); NEUT % 49.5 % (50.0-75.0); NRBC % 0.1 % (0.0-0.0); RBC 4.73 Mil/uL (3.80-5.20); RED CELL DISTRIBUTION WIDTH 13.7 % (11.5-14.5); WHITE BLOOD COUNT 5.1 K/uL (4.8-10.8)
[2018-02-15] MEDS ORDERED: Sodium Chloride 0.9% 1,000 ML IV STA (21:30)
[2018-02-15 21:44] LABS: ALB/GLOB RATIO 1.5 (1.0-2.1); ALT/SGPT 33 U/L (9-52); AST/SGOT 32 U/L (14-36); BLOOD UREA NITROGEN 13 mg/dl (7-17); CALCIUM 10.5 mg/dL (8.4-10.2); GFR NON-AFRICAN AMERICAN > 60; LIPASE 173 U/L (23-300)
[2018-02-15 22:02] LABS: SQUAMOUS EPITHIAL < 1 /hpf (0-5); URINE BILIRUBIN NEGATIVE (NEGATIVE); URINE BLOOD SMALL (NEGATIVE); URINE CLARITY CLEAR (Clear); URINE COLOR STRAW (YELLOW); URINE GLUCOSE (UA) NEG (Normal); URINE LEUKOCYTE ESTERASE TRACE Leu/uL (Negative); URINE PROTEIN NEGATIVE (NEGATIVE); URINE UROBILINOGEN 0.2-1.0 mg/dL (0.2-1.0)
[2018-02-15 22:33] LABS: T4 7.86 ug/dl (5.5-11.0)
[2018-02-15 22:46] LABS: T3 1.08 nmol/L (1.49-2.60)
--- NOTE | 2018-02-15 22:58 | ED PDOC ---
HPI: Abdomen Time Seen by Provider: 02/15/18 20:35 Chief Complaint (Nursing): Abdominal Pain Chief Complaint (Provider): Abdominal Pain History Per: Patient History/Exam Limitations: no limitations Onset/Duration Of Symptoms: Days (x3) Additional Complaint(s): Patient is a 57 y/o female with history of chronic gastritis, IBS, chronic pain, and hyperthyroidism, who presents to the ED complaining of epigastric pain for 3 days. Patient states that she has been having intermittent episodes of pain for the past month but has been getting worse. Patient reports she has had multiple work ups including US, CT, and yesterday she had a bone scan of her rib cage. Patient reports that the pain worsened today and she had associated nausea and weight loss. She reports taking Librax and Dexlan today with no relief. She denies vomiting. Her last bowel movement was today. She reports speaking with Dr. Christensen, her GI specialist, who advised her to visit the ED today. Past Medical History Reviewed: Historical Data, Nursing Documentation, Vital Signs Vital Signs: Last Vital Signs Temp 97.9 F 02/15/18 20:18 Pulse 53 L 02/15/18 20:18 Resp 16 02/15/18 20:18 BP 122/65 02/15/18 20: Pulse Ox 99 02/15/18 23:03 - Medical History PMH: Anxiety, Arthritis, Back Problems (pain), Depression, Gastritis, GERD, HTN , Hypercholesterolemia, Hyperlipidemia, Hyperthyroidism, Hypothyroidism, Kidney Stones, Migraine, Osteoporosis (lower spine, left hip), Chronic Kidney Disease, Chronic Pain Other PMH: Irritable Bowel Syndrome - Surgical History Surgical History: Appendectomy, Endoscopy - Family History Family History: States: Unknown Family Hx, CAD (father), Hypertension - Social History Current smoker - smoking cessation education provided: No Alcohol: None Drugs: Denies - Home Medications Home Medications: Ambulatory Orders Medication Instructions Recorded ALPRAZolam [Xanax] 1 mg PO HS 01/20/16 Dexlansoprazole [Dexilant] 60 mg PO DAILY 12/14/16 Famotidine [Pepcid] 40 mg PO DAILY PRN 12/14/16 Lubiprostone [Amitiza] 8 mcg PO BID PRN 12/14/16 Naproxen Sodium [Naproxen Sodium 550 mg PO BID 12/14/16 Ds] Propylthiouracil [Propylthiouracil] 50 mg PO QPM 12/14/16 Acetaminophen/Butalbital/Caf 1 tab PO Q6 PRN #20 tab 01/03/17 [Fioricet] Ibuprofen [Motrin] 600 mg PO Q6 PRN #15 tab 06/03/17 Methylprednisolone [Medrol Dose 4 mg PO ASDIR #21 mg 06/03/17 Pack (21 tabs)] tiZANidine [Zanaflex] 4 mg PO Q8H PRN #20 tab 06/03/17 Ondansetron [Zofran] 4 mg PO Q8H #10 tab 11/28/17 Acetaminophen/Butalbital/Caf 1 tab PO TID PRN #12 tab 12/05/17 [Fioricet] Nitrofurantoin Macrocrystals 100 mg PO BID #10 cap 12/05/17 [Macrobid] Sucralfate [Carafate] 1 gm PO QID #60 tab 01/27/18 - Allergies Allergies/Adverse Reactions: Allergies Allergy/AdvReac Type Severity Reaction Status Date / Time diphenhydramine HCl Allergy Intermediate SHORTNESS Verified 02/15/18 20:14 [From Benadryl] OF BREATH ciprofloxacin [From Cipro] Allergy RASH Verified 02/15/18 20:14 ciprofloxacin HCl Allergy RASH Verified 02/15/18 20:14 [From Cipro] hydromorphone HCl Allergy SHORTNESS Verified 02/15/18 20:14 [From Dilaudid] OF BREATH morphine Allergy RASH Verified 02/15/18 20:14 Penicillins Allergy RASH Verified 02/15/18 20:14 Review of Systems ROS Statement: Except As Marked, All Systems Reviewed And Found Negative Constitutional: Positive for: Weight loss. Negative for: Fever Gastrointestinal: Positive for: Nausea, Abdominal Pain. Negative for: Vomiting Physical Exam - Reviewed Nursing Documentation Reviewed: Yes Vital Signs Reviewed: Yes - Physical Exam Appears: Positive for: Non-toxic, No Acute Distress Head Exam: Positive for: ATRAUMATIC, NORMOCEPHALIC Skin: Positive for: Normal Color, Warm, Dry Eye Exam: Positive for: EOMI, Normal appearance, PERRL ENT: Positive for: Other (Mucous membranes are dry) Neck: Positive for: Normal, Painless ROM, Supple Cardiovascular/Chest: Positive for: Regular Rate, Rhythm. Negative for: Murmur Respiratory: Positive for: Normal Breath Sounds. Negative for: Respiratory Distress Gastrointestinal/Abdominal: Positive for: Tenderness (epigastric) Extremity: Positive for: Normal ROM. Negative for: Pedal Edema, Deformity Neurologic/Psych: Positive for: Alert, Oriented. Negative for: Motor/Sensory Deficits - Laboratory Results Result Diagrams: 02/15/18 21:20 02/15/18 21:20 - ECG O2 Sat by Pulse Oximetry: 99 (RA) Pulse Ox Interpretation: Normal Medical Decision Making Medical Decision Making: Time: 21:15 Impression: 57 y/o female with abdominal pain in setting of gastritis and IBS Plan: --CMP --Free T4 --FT3 --Lipase --T3 --T4 --TSH --CBC w/ diff --GI cocktail --IV fluids --UA Time: 33 --Upon provider reevaluation, patient is medically stable, reports markable improvement and requires no further treatment in the ED at this time. Patient will be discharged home and advised to follow up with his GI specialist, Dr. Jeremy Christensen. Counseling was provided and all questions were answered regarding diagnosis. There is agreement to discharge plan. Return if symptoms persist or worsen. Clinical Impression: IBS; Abdominal pain; Gastritis Scribe Attestation: Documented by Harshad Talbert, acting as a scribe for Woody Camarena MD Provider Scribe Attestation: All medical record entries made by the Scribe were at my direction and personally dictated by me. I have reviewed the chart and agree that the record accurately reflects my personal performance of the history, physical exam, medical decision making, and the department course for this patient. I have also personally directed, reviewed, and agree with the discharge instructions and disposition. Disposition - Clinical Impression Clinical Impression: Abdominal pain, IBS (irritable bowel syndrome), Gastritis - Patient ED Disposition Is Patient to be Admitted: No Counseled Patient/Family Regarding: Studies Performed, Diagnosis, Need For Followup, Rx Given - Disposition Disposition: Routine/Home Disposition Time: 00:34 Condition: IMPROVED Instructions: Irritable Bowel Syndrome, Gastritis Forms: [employer] (French)
[2018-02-16 01:05] VITALS: BP 130/71; PULSE 62; RESP 18; TEMP 98.4
== END 2018-02-16 01:05 | disposition home or self-care (01) ==
LOC: H.ER 19:49
DX: R10.13 Epigastric pain (principal); K58.9 Irritable bowel syndrome, unspecified; K29.70 Gastritis, unspecified, without bleeding
CPT/HCPCS: 80053; 81003; 83690; 84436; 84439; 84443; 84481; 85025; 99284; J7030

== ENCOUNTER 2018-04-08 13:07 | Emergency (ER) | payer MEDICARE, OTHER ==
[2018-04-08 13:07] VITALS: BMI 21.5
--- NOTE | 2018-04-08 13:35 | ED PDOC ---
HPI: Chest Pain Time Seen by Provider: 04/08/18 13:21 Chief Complaint (Nursing): Chest Pain Chief Complaint (Provider): Chest Pain History Per: Patient History/Exam Limitations: no limitations Onset/Duration Of Symptoms: Hrs Additional Complaint(s): Patient is a 57 y/o female with history of hyperthyroid disease and GERD who presents to the ED complaining of left sided chest, back, shoulder and neck pain, onset earlier this morning. Patient describes the pain as sharp and reports worsening on movement. Patient denies any associated shortness of breath. Past Medical History Reviewed: Historical Data, Nursing Documentation, Vital Signs Vital Signs: Last Vital Signs Temp 97.7 F 04/08/18 13:18 Pulse 55 L 04/08/18 13:18 Resp 18 04/08/18 13:18 BP 133/74 04/08/18 13:18 Pulse Ox 99 04/08/18 13:18 - Medical History PMH: Anxiety, Arthritis, Back Problems (pain), Depression, Gastritis, GERD, HTN, Hypercholesterolemia, Hyperlipidemia, Hyperthyroidism, Hypothyroidism, Kidney Stones, Migraine, Osteoporosis (lower spine, left hip), Chronic Kidney Disease, Chronic Pain - Surgical History Surgical History: Appendectomy, Endoscopy - Family History Family History: States: Unknown Family Hx, CAD (father), Hypertension - Home Medications Home Medications: Ambulatory Orders Medication Instructions Recorded ALPRAZolam [Xanax] 1 mg PO HS 01/20/16 Dexlansoprazole [Dexilant] 60 mg PO DAILY 12/14/16 Famotidine [Pepcid] 40 mg PO DAILY PRN 12/14/16 Lubiprostone [Amitiza] 8 mcg PO BID PRN 12/14/16 Naproxen Sodium [Naproxen Sodium 550 mg PO BID 12/14/16 Ds] Propylthiouracil 50 mg PO QPM 12/14/16 Acetaminophen/Butalbital/Caf 1 tab PO Q6 PRN #20 tab 01/03/17 [Fioricet] Ibuprofen [Motrin] 600 mg PO Q6 PRN #15 tab 06/03/17 Methylprednisolone [Medrol Dose 4 mg PO ASDIR #21 mg 06/03/17 Pack (21 tabs)] tiZANidine [Zanaflex] 4 mg PO Q8H PRN #20 tab 06/03/17 Ondansetron [Zofran] 4 mg PO Q8H #10 tab 11/28/17 Acetaminophen/Butalbital/Caf 1 tab PO TID PRN #12 tab 12/05/17 [Fioricet] Nitrofurantoin Macrocrystals 100 mg PO BID #10 cap 12/05/17 [Macrobid] Sucralfate [Carafate] 1 gm PO QID #60 tab 01/27/18 - Allergies Allergies/Adverse Reactions: Allergies Allergy/AdvReac Type Severity Reaction Status Date / Time diphenhydramine HCl Allergy Intermediate SHORTNESS Verified 04/08/18 13:17 [From Benadryl] OF BREATH ciprofloxacin [From Cipro] Allergy RASH Verified 04/08/18 13:17 ciprofloxacin HCl Allergy RASH Verified 04/08/18 13:17 [From Cipro] hydromorphone HCl Allergy SHORTNESS Verified 04/08/18 13:17 [From Dilaudid] OF BREATH morphine Allergy RASH Verified 04/08/18 13:17 Penicillins Allergy RASH Verified 04/08/18 13:17 Review of Systems ROS Statement: Except As Marked, All Systems Reviewed And Found Negative Constitutional: Negative for: Fever Cardiovascular: Positive for: Chest Pain Respiratory: Negative for: Shortness of Breath Genitourinary Female: Positive for: Frequency Musculoskeletal: Positive for: Neck Pain (left sided), Shoulder Pain (left sided), Back Pain (left sided) Physical Exam - Reviewed Nursing Documentation Reviewed: Yes Vital Signs Reviewed: Yes - Physical Exam Appears: Positive for: Non-toxic, No Acute Distress Head Exam: Positive for: ATRAUMATIC, NORMOCEPHALIC Skin: Positive for: Normal Color, Warm, Dry Eye Exam: Positive for: EOMI, Normal appearance, PERRL Neck: Positive for: Normal, Painless ROM Cardiovascular/Chest: Positive for: Regular Rate, Rhythm. Negative for: Chest Non Tender (anterior chest wall tenderness; left side reproducible) Respiratory: Positive for: Normal Breath Sounds. Negative for: Rales, Rhonchi, Wheezing, Respiratory Distress Gastrointestinal/Abdominal: Positive for: Normal Exam, Soft. Negative for: Tenderness Back: Positive for: Normal Inspection Extremity: Positive for: Normal ROM. Negative for: Pedal Edema, Deformity Neurologic/Psych: Positive for: Alert, Oriented. Negative for: Motor/Sensory Deficits - ECG O2 Sat by Pulse Oximetry: 99 (RA) Pulse Ox Interpretation: Normal Medical Decision Making Medical Decision Making: Time: 13:30 Initial Plan: CMP Troponin I CBC w/ Diff CXR 2 views Toradol 30 mg IVP Scribe Attestation: Documented by Harshad Talbert, acting as a scribe for Freddy Walker MD. Provider Scribe Attestation: All medical record entries made by the Scribe were at my direction and personally dictated by me. I have reviewed the chart and agree that the record accurately reflects my personal performance of the history, physical exam, medical decision making, and the department course for this patient. I have also personally directed, reviewed, and agree with the discharge instructions and disposition. Disposition - Clinical Impression Clinical Impression: Chest pain - Patient ED Disposition Is Patient to be Admitted: Transfer of Care - Disposition Disposition: Transfer of Care Disposition Time: 14:58 Condition: FAIR Forms: [employer] (Nepali) Patient Signed Over To: Martha Irwin
[2018-04-08 15:10] LABS: BASO % 0.3 % (0.0-2.0); EOS % 0.2 % (0.0-4.0); HEMOGLOBIN 13.1 g/dL (12.0-16.0); LYMPH # 1.2 K/uL (1.0-4.3); LYMPH % 19.8 % (20.0-40.0); MEAN CELL VOLUME 85.1 fl (81.0-99.0); MEAN CORPUSCULAR HEMOGLOBIN 28.5 pg (27.0-31.0); MEAN CORPUSCULAR HGB CONC 33.5 g/dL (33.0-37.0); MEAN PLATELET VOLUME 9.2 fl (7.2-11.7); MONO # 0.3 K/uL (0.0-0.8); MONO % 4.6 % (0.0-10.0); NEUT # 4.5 K/uL (1.8-7.0); NEUT % 75.1 % (50.0-75.0); RBC 4.6 Mil/uL (3.80-5.20); RED CELL DISTRIBUTION WIDTH 13.9 % (11.5-14.5)
--- NOTE | 2018-04-08 15:10 | ED PDOC ---
- Laboratory Results Result Diagrams: 04/08/18 15:06 04/08/18 15:06 - ECG O2 Sat by Pulse Oximetry: 99 (RA) Medical Decision Making Medical Decision Makin:00 Patient signed out to this provider from Dr. Walker. Pending labs. 16:05 Pt states she feels much better. States she is under care of Dr. Patel and had normal echo and stress test 3 months ago. Pt states she lifted heavy drawer yesterday and thinks this exacerbated tendon tear in her L shoulder (dx by MRI). Pain radiates from L upper arm to neck to top of head and into breast. Attempted to discuss case with Dr. Diaz but has covering physician. Scribe Attestation: Documented by Bull Cerrato acting as a scribe for Martha Irwin MD. Provider Scribe Attestation: All medical record entries made by the Scribe were at my direction and personally dictated by me. I have reviewed the chart and agree that the record accurately reflects my personal performance of the history, physical exam, medical decision making, and the department course for this patient. I have also personally directed, reviewed, and agree with the discharge instructions and disposition. Disposition - Clinical Impression Clinical Impression: Musculoskeletal pain, Atypical chest pain - POA Present On Arrival: None - Disposition Referrals: Archie Cooper MD [Staff Provider] - Disposition: Routine/Home Disposition Time: 16:10 Condition: IMPROVED Instructions: Chest Pain, Chest Pain (DC), Muscle and Bone Pain (DC) Forms: [employer] (Dominican)
[2018-04-08 15:19] LABS: BLOOD UREA NITROGEN 10 mg/dl (7-17); CALCIUM 9.6 mg/dL (8.4-10.2); GFR NON-AFRICAN AMERICAN > 60
[2018-04-08 15:27] LABS: ALB/GLOB RATIO 1.3 (1.0-2.1); ALBUMIN 4.3 g/dL (3.5-5.0); ALT/SGPT 22 U/L (9-52); AST/SGOT 43 U/L (14-36)
--- NOTE | 2018-04-08 15:58 | RAD ---
Date of service: 04/08/2018 HISTORY: Chest pain COMPARISON: 01/27/2018 TECHNIQUE: Chest PA and lateral FINDINGS: LUNGS: No active pulmonary disease. PLEURA: No significant pleural effusion identified. No pneumothorax apparent. CARDIOVASCULAR: Normal. OSSEOUS STRUCTURES: No significant abnormalities. VISUALIZED UPPER ABDOMEN: Normal. OTHER FINDINGS: None. IMPRESSION: No active disease.
[2018-04-08 17:07] VITALS: BP 128/77; PULSE 66; RESP 16; TEMP 98; O2SAT 98
--- NOTE | 2018-04-09 10:44 | CARD ---
APPROVED REPORT Date of service: 04/08/2018 EKG Measurement Heart [id number] HI [id number] <Conclusion> Sinus bradycardia Otherwise normal ECG
== END 2018-04-08 17:07 | disposition home or self-care (01) ==
LOC: H.ER 13:07
DX: R07.89 Other chest pain (principal); E03.9 Hypothyroidism, unspecified; E05.90 Thyrotoxicosis, unspecified without thyrotoxic crisis or storm; E78.00 Pure hypercholesterolemia, unspecified; I12.9 Hypertensive chronic kidney disease with stage 1 through stage 4 chronic kidney disease, or unspecified chronic kidney disease; Z88.0 Allergy status to penicillin

== ENCOUNTER 2018-04-10 15:48 | Emergency (ER) | payer MEDICARE, OTHER ==
[2018-04-10 15:48] VITALS: BMI 21.5
[2018-04-10 15:53] VITALS: BP 106/69; PULSE 84; RESP 16; TEMP 98.3; O2SAT 98
--- NOTE | 2018-04-10 16:35 | ED PDOC ---
HPI: General Adult Chief Complaint (Provider): left foot and ankle pain History Per: Patient Additional Complaint(s): Kellen Smith is a 57 year old female who is presenting to the emergency room for evaluation of left foot and ankle pain ongoing for 2 days. Patient states 2 days ago her foot fell asleep she was sitting on the couch. When she stood up she slammed her foot against the ground causing injury. Since then she has had pain to left foot and ankle. The pain got better yesterday but then return today prompting ED visit. Patient took Tylenol earlier which helped somewhat with pain. PMD: Archie Cooper <Valorie Mercedes - Last Filed: 04/10/18 17:26> <Martha Irwin - Last Filed: 04/11/18 00:01> Time Seen by Provider: 04/10/18 15:58 Chief Complaint (Nursing): Lower Extremity Problem/Injury Supervising Attending Note - Attestation: I have personally seen and examined this patient.: No I have reviewed all pertinent clinical information, including history, physical exam and plan: Yes <Martha Irwin F - Last Filed: 04/11/18 00:01> Past Medical History Reviewed: Historical Data, Nursing Documentation, Vital Signs Vital Signs: Last Vital Signs Temp 98.3 F 04/10/18 15:51 Pulse 84 04/10/18 15:51 Resp 16 04/10/18 15:51 BP 106/69 04/10/18 15:51 Pulse Ox 98 04/10/18 15:51 - Medical History PMH: Anxiety, Arthritis, Back Problems (pain), Depression, GERD, HTN, Hypercholesterolemia, Hyperlipidemia, Hyperthyroidism, Kidney Stones, Osteoporosis (lower spine, left hip), Chronic Pain - Surgical History Surgical History: Appendectomy, Endoscopy - Family History Family History: States: CAD (father), Hypertension - Living Arrangements Living Arrangements: With Family - Social History Current smoker - smoking cessation education provided: No Alcohol: None Drugs: Denies <Valorie Mercedes - Last Filed: 04/10/18 17:26> Vital Signs: Last Vital Signs Temp 98.3 F 04/10/18 15:51 Pulse 84 04/10/18 15:51 Resp 16 04/10/18 15:51 BP 106/69 04/10/18 15:51 Pulse Ox 98 10/14/18 17:32 <Martha Irwin F - Last Filed: 04/11/18 00:01> - Home Medications Home Medications: Ambulatory Orders Medication Instructions Recorded RX: ALPRAZolam [Xanax] 1 mg PO HS 01/20/16 Dexlansoprazole [Dexilant] 60 mg PO DAILY 12/14/16 Famotidine [Pepcid] 40 mg PO DAILY PRN 12/14/16 Lubiprostone [Amitiza] 8 mcg PO BID PRN 12/14/16 Propylthiouracil 50 mg PO QPM 12/14/16 RX: Naproxen Sodium [Naproxen 550 mg PO BID 12/14/16 Sodium Ds] Acetaminophen/Butalbital/Caf 1 tab PO Q6 PRN #20 tab 01/03/17 [Fioricet] Ibuprofen [Motrin] 600 mg PO Q6 PRN #15 tab 06/03/17 Methylprednisolone [Medrol Dose 4 mg PO ASDIR #21 mg 06/03/17 Pack (21 tabs)] RX: tiZANidine [Zanaflex] 4 mg PO Q8H PRN #20 tab 06/03/17 Ondansetron [Zofran] 4 mg PO Q8H #10 tab 11/28/17 Acetaminophen/Butalbital/Caf 1 tab PO TID PRN #12 tab 12/05/17 [Fioricet] Nitrofurantoin Macrocrystals 100 mg PO BID #10 cap 12/05/17 [Macrobid] Sucralfate [Carafate] 1 gm PO QID #60 tab 01/27/18 - Allergies Allergies/Adverse Reactions: Allergies Allergy/AdvReac Type Severity Reaction Status Date / Time diphenhydramine HCl Allergy Intermediate SHORTNESS Verified 04/08/18 13:17 [From Benadryl] OF BREATH ciprofloxacin [From Cipro] Allergy RASH Verified 04/08/18 13:17 ciprofloxacin HCl Allergy RASH Verified 04/08/18 13:17 [From Cipro] hydromorphone HCl Allergy SHORTNESS Verified 04/08/18 13:17 [From Dilaudid] OF BREATH morphine Allergy RASH Verified 04/08/18 13:17 Penicillins Allergy RASH Verified 04/08/18 13:17 Review of Systems ROS Statement: Except As Marked, All Systems Reviewed And Found Negative Musculoskeletal: Positive for: Foot Pain (left foot and ankle injury) <Valorie Mercedes - Last Filed: 04/10/18 17:26> Physical Exam - Reviewed Nursing Documentation Reviewed: Yes Vital Signs Reviewed: Yes - Physical Exam Appears: Positive for: Well, Non-toxic, No Acute Distress Head Exam: Positive for: ATRAUMATIC, NORMAL INSPECTION, NORMOCEPHALIC Skin: Positive for: Normal Color. Negative for: Rash Eye Exam: Positive for: Normal appearance Extremity: Positive for: Other (swelling and tendernes to left lateral malleolus and dorsolateral aspect of left foot) Neurologic/Psych: Positive for: Alert, Oriented. Negative for: Motor/Sensory Deficits <ZacharyjuaniValorie matthew - Last Filed: 04/10/18 17:26> - ECG O2 Sat by Pulse Oximetry: 98 (RA) Pulse Ox Interpretation: Normal - Other Rad Left foot and ankle x-ray X-Ray: Interpreted by Me, Viewed By Me X-Ray Interpretation: no fx, no dis <ZacharyjuaniValorie matthew - Last Filed: 04/10/18 17:26> Medical Decision Making Medical Decision Making: Time: 16:3o Impression: 57 year old female with left foot and ankle pain Plan: --Tylenol 975 mg PO --X-Ray Left Ankle --X-Ray Left Foot Patient is aware of x-ray results. All questions answered. Crutches given. Patient advised to continue with Tylenol for pain and ice and elevate affected area. See procedure note. Patient was referred to on-call data visualization developer for follow- up. Scribe Attestation: Documented by Nevaeh Clifton, acting as a scribe for Valorie Mercedes PA-C. Provider Scribe Attestation: All medical record entries made by the Scribe were at my direction and personally dictated by me. I have reviewed the chart and agree that the record accurately reflects my personal performance of the history, physical exam, medical decision making, and the department course for this patient. I have also personally directed, reviewed, and agree with the discharge instructions and disposition. <Valorie Mercedes - Last Filed: 04/10/18 17:26> Procedures - Splinting Location: left foot and ankle Pre-Made Type: socorro wrap, aircast, ortho shoe Pre-Proc Neuro Vasc Exam: normal Post-Proc Neuro Vasc Exam: normal <Valorie Mercedes - Last Filed: 04/10/18 17:26> Disposition - Patient ED Disposition Is Patient to be Admitted: No Counseled Patient/Family Regarding: Studies Performed, Diagnosis, Need For Followup - Disposition Disposition: Routine/Home Disposition Time: 17:27 <Valorie Mercedes - Last Filed: 04/10/18 17:26> <IrwinMartha - Last Filed: 04/11/18 00:01> - Clinical Impression Clinical Impression: Foot sprain, Ankle sprain - Disposition Referrals: Chucky Turner MD [Staff Provider] - Condition: STABLE Additional Instructions: Ice, rest and elevate affected area. Take Tylenol every 4 hours for pain as needed. Follow-up with data visualization developer for any persistent symptoms. Instructions: Ankle Sprain (DC), Foot Sprain (DC) Forms: [employer] (Jordanian)
--- NOTE | 2018-04-10 18:35 | RAD ---
Date of service: 04/10/2018 PROCEDURE: Left Ankle Radiographs. HISTORY: trauma COMPARISON: None FINDINGS: BONES: Normal. No fracture. JOINTS: Normal. No osteoarthritis. Ankle mortise maintained. Talar dome intact SOFT TISSUES: Normal. OTHER FINDINGS: None. IMPRESSION: No evidence of acute fracture or dislocation.
--- NOTE | 2018-04-10 18:39 | RAD ---
Date of service: 04/10/2018 PROCEDURE: Left Foot Radiographs. HISTORY: trauma COMPARISON: None. FINDINGS: BONES: Normal. No fracture. JOINTS: Normal. SOFT TISSUES: Normal. OTHER FINDINGS: None. IMPRESSION: No evidence of acute fracture or dislocation.
== END 2018-04-10 17:32 | disposition home or self-care (01) ==
LOC: H.ER 15:48
DX: S93.402A Sprain of unspecified ligament of left ankle, initial encounter (principal); W19.XXXA Unspecified fall, initial encounter; Y92.89 Other specified places as the place of occurrence of the external cause

== ENCOUNTER 2018-04-30 16:31 | Emergency (ER) | payer MEDICARE, OTHER ==
[2018-04-30 16:31] VITALS: BMI 21.5
[2018-04-30 16:57] VITALS: O2SAT 99
[2018-04-30] MEDS ORDERED: Sodium Chloride 0.9% 1,000 ML IV STA (17:28)
[2018-04-30] MEDS ORDERED: Alum-Mag Hydrox-Simethicone Susp (30 mL) PO ONE (17:30)
[2018-04-30] MEDS ORDERED: Iohexol 240 (50 ml) PO ONE (17:31)
--- NOTE | 2018-04-30 17:37 | ED PDOC ---
HPI: Abdomen Time Seen by Provider: 04/30/18 17:04 Chief Complaint (Nursing): Abdominal Pain Chief Complaint (Provider): Abdominal Pain History Per: Patient History/Exam Limitations: no limitations Onset/Duration Of Symptoms: Days (x2-3) Current Symptoms Are (Timing): Still Present Location Of Pain/Discomfort: Epigastric Quality Of Discomfort: "Pain" Associated Symptoms: Nausea. denies: Fever, Vomiting, Diarrhea Additional Complaint(s): 57 year old male presents to the ED with epigastric pain onset 2-3 days associated nausea. Patient denies vomiting, fever, diarrhea, blood in stool or any other medical complaints. He is status post endoscopy x4 days ago, found to have gastritis. PMD: Allison Past Medical History Reviewed: Historical Data, Nursing Documentation, Vital Signs Vital Signs: Last Vital Signs Temp 98.6 F 04/30/18 16:55 Pulse 63 04/30/18 16:55 Resp 16 04/30/18 16:55 BP 108/69 04/30/18 16:55 Pulse Ox 99 04/30/18 16:55 - Medical History PMH: Anxiety, Arthritis, Back Problems (pain), Depression, Gastritis, GERD, HTN, Hypercholesterolemia, Hyperlipidemia, Hyperthyroidism, Hypothyroidism, Kidney Stones, Migraine, Osteoporosis (lower spine, left hip), Chronic Kidney Disease, Chronic Pain - Surgical History Surgical History: Appendectomy, Endoscopy - Family History Family History: States: Unknown Family Hx, CAD (father), Hypertension - Home Medications Home Medications: Ambulatory Orders Medication Instructions Recorded ALPRAZolam [Xanax] 1 mg PO HS 01/20/16 Dexlansoprazole [Dexilant] 60 mg PO DAILY 12/14/16 Famotidine [Pepcid] 40 mg PO DAILY PRN 12/14/16 Lubiprostone [Amitiza] 8 mcg PO BID PRN 12/14/16 Naproxen Sodium [Naproxen Sodium 550 mg PO BID 12/14/16 Ds] Propylthiouracil 50 mg PO QPM 12/14/16 Acetaminophen/Butalbital/Caf 1 tab PO Q6 PRN #20 tab 01/03/17 [Fioricet] Ibuprofen [Motrin] 600 mg PO Q6 PRN #15 tab 06/03/17 Methylprednisolone [Medrol Dose 4 mg PO ASDIR #21 mg 06/03/17 Pack (21 tabs)] tiZANidine [Zanaflex] 4 mg PO Q8H PRN #20 tab 06/03/17 Ondansetron [Zofran] 4 mg PO Q8H #10 tab 11/28/17 Acetaminophen/Butalbital/Caf 1 tab PO TID PRN #12 tab 12/05/17 [Fioricet] Nitrofurantoin Macrocrystals 100 mg PO BID #10 cap 12/05/17 [Macrobid] Sucralfate [Carafate] 1 gm PO QID #60 tab 01/27/18 - Allergies Allergies/Adverse Reactions: Allergies Allergy/AdvReac Type Severity Reaction Status Date / Time diphenhydramine HCl Allergy Intermediate SHORTNESS Verified 04/30/18 16:58 [From Benadryl] OF BREATH ciprofloxacin [From Cipro] Allergy RASH Verified 04/30/18 16:58 ciprofloxacin HCl Allergy RASH Verified 04/30/18 16:58 [From Cipro] hydromorphone HCl Allergy SHORTNESS Verified 04/30/18 16:58 [From Dilaudid] OF BREATH morphine Allergy RASH Verified 04/30/18 16:58 Penicillins Allergy RASH Verified 04/30/18 16:58 Review of Systems ROS Statement: Except As Marked, All Systems Reviewed And Found Negative Gastrointestinal: Positive for: Nausea, Abdominal Pain. Negative for: Vomiting, Diarrhea, Hematochezia Physical Exam - Reviewed Nursing Documentation Reviewed: Yes Vital Signs Reviewed: Yes - Physical Exam Eye Exam: Positive for: Normal appearance Cardiovascular/Chest: Positive for: Regular Rate, Rhythm. Negative for: Murmur Respiratory: Positive for: Normal Breath Sounds. Negative for: Respiratory Distress Gastrointestinal/Abdominal: Positive for: Soft, Tenderness (epigastric) Extremity: Positive for: Normal ROM (upper and lower). Negative for: Pedal Edema, Deformity Neurologic/Psych: Positive for: Alert, Oriented (x3). Negative for: Motor/Sensory Deficits - Laboratory Results Result Diagrams: 04/30/18 18:12 04/30/18 18:12 - ECG O2 Sat by Pulse Oximetry: 99 (RA) Pulse Ox Interpretation: Normal Medical Decision Making Medical Decision Making: Time: 172 Initial Plan: --CT abdomen and pelvis --CMP --Lipase --Urine dip --CBC with differentials -- 10 ml PO --Maalox 30 ml PO --NS --Omnipaque 50 ml PO --Protonix Inj 40 mg IVP ------- Scribe Attestation: Documented by Jodee Cerrato, acting as a scribe for Freddy Walker MD Provider Scribe Attestation: All medical record entries made by the Scribe were at my direction and personally dictated by me. I have reviewed the chart and agree that the record accurately reflects my personal performance of the history, physical exam, medical decision making, and the department course for this patient. I have also personally directed, reviewed, and agree with the discharge instructions and disposition. Disposition - Clinical Impression Clinical Impression: Abdominal pain - Patient ED Disposition Is Patient to be Admitted: Transfer of Care - Disposition Disposition: Transfer of Care Disposition Time: 19:00 Condition: FAIR Forms: [employer] (Polish) Patient Signed Over To: Woody Camarena
[2018-04-30] MEDS ORDERED: Alum-Mag Hydrox-Simethicone Susp (30 mL) ONE (17:55)
[2018-04-30] MEDS ORDERED: Atrop/Hyos/Scop/PhenoB Elixir PO ONE (18:00)
[2018-04-30 18:17] LABS: BASO % 0.5 % (0.0-2.0); EOS % 0.6 % (0.0-4.0); HEMOGLOBIN 12.8 g/dL (12.0-16.0); LYMPH # 1.9 K/uL (1.0-4.3); LYMPH % 39.5 % (20.0-40.0); MEAN CELL VOLUME 85.6 fl (81.0-99.0); MEAN CORPUSCULAR HEMOGLOBIN 28.2 pg (27.0-31.0); MONO # 0.3 K/uL (0.0-0.8); MONO % 6.4 % (0.0-10.0); NEUT # 2.6 K/uL (1.8-7.0); RBC 4.53 Mil/uL (3.80-5.20); RED CELL DISTRIBUTION WIDTH 13.7 % (11.5-14.5); WHITE BLOOD COUNT 4.9 K/uL (4.8-10.8)
[2018-04-30 18:38] LABS: ALB/GLOB RATIO 1.4 (1.0-2.1); ALBUMIN 4.8 g/dL (3.5-5.0); ALT/SGPT 31 U/L (9-52); AST/SGOT 35 U/L (14-36); BLOOD UREA NITROGEN 7 mg/dl (7-17); CALCIUM 9.8 mg/dL (8.4-10.2); GFR NON-AFRICAN AMERICAN > 60; LIPASE 130 U/L (23-300)
--- NOTE | 2018-04-30 19:24 | ED PDOC ---
- Laboratory Results Result Diagrams: 04/30/18 18:12 04/30/18 18:12 - ECG O2 Sat by Pulse Oximetry: 99 (RA) Pulse Ox Interpretation: Normal Medical Decision Making Medical Decision Making: Time: 1899 --Patient signed out to this provider by Dr. Walker, pending CT. Time: 2122 CT Abdomen and Pelvis w/ PO contrast FINDINGS: LUNG BASES: The pulmonary bases are well-aerated. LIVER: Unremarkable. GALLBLADDER AND BILE DUCTS: The gallbladder appears within normal limits. No radioopaque gallstones are seen. No biliary ductal dilatation is evident. PANCREAS: Unremarkable. SPLEEN: Unremarkable. ADRENAL GLANDS: Unremarkable. KIDNEYS, URETERS, AND BLADDER: The kidneys appear within normal limits. There is no hydronephrosis or hydroureter. No urinary calculi are seen. STOMACH AND BOWEL: Abnormality of the transverse colon. See series 601 image 23. Transverse colon demonstrates edematous meadows and a paucity of normal folds and occasional diverticuli. This configuration continues into the descending colon although with less wall thickening. APPENDIX: The appendix is identified and is noninflammatory. PERITONEUM: No free fluid. No free air. LYMPH NODES: No lymphadenopathy is evident. VASCULATURE: No evidence of abdominal aortic aneurysm. BONES: No aggressive appearing osseous lesion. No acute osseous pathology evident. MISCELLANEOUS: There are no pericolonic inflammatory changes. IMPRESSION: 1. Abnormality of the transverse colon. See series 601 image 23. Transverse colon demonstrates edematous meadows and a paucity of normal folds and occasional diverticuli. This configuration continues into the descending colon although with less wall thickening. 2. There are no pericolonic inflammatory changes. 3. The appendix is identified and is noninflammatory. 4. The pulmonary bases are well-aerated. 5. Changes of the transverse and descending segments of the colon as described above. The pattern appears more like colitis rather than a diverticulitis. Correlate clinically Time: 2205 --CT results and case discussed with Dr. Christensen, who agrees patient can be discharged home. Patient has an appointment scheduled with Dr. Christensen for follow up. Diagnosis abdominal pain. ------ Scribe Attestation: Documented by Jodee Cerrato, acting as a scribe for Woody Camarena MD Provider Scribe Attestation: All medical record entries made by the Scribe were at my direction and personally dictated by me. I have reviewed the chart and agree that the record accurately reflects my personal performance of the history, physical exam, medical decision making, and the department course for this patient. I have also personally directed, reviewed, and agree with the discharge instructions and dis position. Disposition Discussed With : Jeremy Christensen - Clinical Impression Clinical Impression: Abdominal pain - POA Present On Arrival: None - Disposition Disposition: Routine/Home Disposition Time: 22:06 Condition: STABLE Instructions: Stomach Ache and Stomach Upset Forms: [employer] (Kiswahili)
[2018-04-30] MEDS ORDERED: Sodium Chloride 0.9% 50 ML IV ONE (20:27)
[2018-04-30] MEDS ORDERED: Iohexol 300 100 ML IJ ONE (20:27)
[2018-04-30 22:54] VITALS: BP 105/59; PULSE 60; RESP 18; TEMP 98.2
--- NOTE | 2018-05-01 07:42 | CT ---
Date of service: 04/30/2018 PROCEDURE: CT Abdomen and Pelvis with contrast HISTORY: abd pain COMPARISON: 01/27/2018 TECHNIQUE: Contrast dose: Radiation dose: Total exam DLP = 214.9 mGy-cm. This CT exam was performed using one or more of the following dose reduction techniques: Automated exposure control, adjustment of the mA and/or kV according to patient size, and/or use of iterative reconstruction technique. FINDINGS: LOWER THORAX: Unremarkable. LIVER: Unremarkable. No gross lesion or ductal dilatation. GALLBLADDER AND BILE DUCTS: Unremarkable. PANCREAS: Unremarkable. No gross lesion or ductal dilatation. SPLEEN: Unremarkable. ADRENALS: Unremarkable. No mass. KIDNEYS AND URETERS: Unremarkable. No hydronephrosis. No solid mass. VASCULATURE: Unremarkable. No aortic aneurysm. No aortic atherosclerotic calcification or mural plaque present. BOWEL: Mild thickening of the transverse colon with few scattered diverticula no pericolonic fat infiltration. Correlate clinically for colitis. APPENDIX: Normal appendix. PERITONEUM: Unremarkable. No free fluid. No free air. LYMPH NODES: Unremarkable. No enlarged lymph nodes. BLADDER: Unremarkable. REPRODUCTIVE: Unremarkable. BONES: No acute fracture. OTHER FINDINGS: None. IMPRESSION: Question colitis of the transverse colon.
== END 2018-04-30 22:54 | disposition home or self-care (01) ==
LOC: H.ER 16:31
DX: R10.13 Epigastric pain (principal); G89.29 Other chronic pain; I12.9 Hypertensive chronic kidney disease with stage 1 through stage 4 chronic kidney disease, or unspecified chronic kidney disease; Z87.442 Personal history of urinary calculi; Z88.0 Allergy status to penicillin; N18.9 Chronic kidney disease, unspecified; M81.0 Age-related osteoporosis without current pathological fracture; Z86.59 Personal history of other mental and behavioral disorders; E05.90 Thyrotoxicosis, unspecified without thyrotoxic crisis or storm
CPT/HCPCS: 74177; 80053; 83690; 85025; 96374; 99284; C9113; J7030; Q9966; Q9967

== ENCOUNTER 2018-08-04 12:51 | Emergency (ER) | payer MEDICARE, OTHER ==
[2018-08-04 12:51] VITALS: BMI 20.4
[2018-08-04 13:19] VITALS: BP 118/59; PULSE 71; RESP 18; TEMP 98.2; O2SAT 99
--- NOTE | 2018-08-04 13:54 | ED PDOC ---
History of Present Illness History of Present Illness: 57yo female with history of hypothyroidsm, comes to ER reporting headache, bodyaches, chills, cough and sore throat x 4 days. She has not checked her temperature at home. Patient reports back pain as well. She denies any vomiting, chest pain or shortness of breath and has no additional complaints. PMD: Dr. Cooper HPI: Influenza Time Seen by Provider: 08/04/18 13:33 Chief Complaint: Flu-like Symptoms Chief Complaint (Provider): Flu like symptom History Per: Patient Exam Limitations: no limitations Have you had recent travel within the past 21 days to any of: No Onset/Duration Of Symptoms: Days Symptoms include: fever, headache, bodyaches Past Medical History Reviewed: Historical Data, Nursing Documentation, Vital Signs Vital Signs: Last Vital Signs Temp 98.2 F 08/04/18 13:17 Pulse 71 08/04/18 13:17 Resp 18 08/04/18 13:17 BP 118/59 L 08/04/18 13:17 Pulse Ox 99 08/04/18 13:17 - Medical History PMH: Anxiety, Arthritis, Back Problems (pain), Depression, Gastritis, GERD, HTN, Hypercholesterolemia, Hyperlipidemia, Hyperthyroidism, Hypothyroidism, Kidney Stones, Migraine, Osteoporosis (lower spine, left hip), Chronic Kidney Disease, Chronic Pain - Surgical History Surgical History: Appendectomy, Endoscopy - Family History Family History: States: Unknown Family Hx, CAD (father), Hypertension - Home Medications Home Medications: Ambulatory Orders Medication Instructions Recorded ALPRAZolam [Xanax] 1 mg PO HS 01/20/16 Dexlansoprazole [Dexilant] 60 mg PO DAILY 12/14/16 Famotidine [Pepcid] 40 mg PO DAILY PRN 12/14/16 Lubiprostone [Amitiza] 8 mcg PO BID PRN 12/14/16 Naproxen Sodium [Naproxen Sodium 550 mg PO BID 12/14/16 Ds] Propylthiouracil 50 mg PO QPM 12/14/16 Acetaminophen/Butalbital/Caf 1 tab PO Q6 PRN #20 tab 01/03/17 [Fioricet] Ibuprofen [Motrin] 600 mg PO Q6 PRN #15 tab 06/03/17 Methylprednisolone [Medrol Dose 4 mg PO ASDIR #21 mg 06/03/17 Pack (21 tabs)] tiZANidine [Zanaflex] 4 mg PO Q8H PRN #20 tab 06/03/17 Ondansetron [Zofran] 4 mg PO Q8H #10 tab 11/28/17 Acetaminophen/Butalbital/Caf 1 tab PO TID PRN #12 tab 12/05/17 [Fioricet] Nitrofurantoin Macrocrystals 100 mg PO BID #10 cap 12/05/17 [Macrobid] Sucralfate [Carafate] 1 gm PO QID #60 tab 01/27/18 Azithromycin [Zithromax] 250 mg PO DAILY #6 tab 08/04/18 Naproxen [Naprosyn] 500 mg PO Q12H #20 tab 08/04/18 - Allergies Allergies/Adverse Reactions: Allergies Allergy/AdvReac Type Severity Reaction Status Date / Time diphenhydramine HCl Allergy Intermediate SHORTNESS Verified 04/30/18 16:58 [From Benadryl] OF BREATH ciprofloxacin [From Cipro] Allergy RASH Verified 04/30/18 16:58 ciprofloxacin HCl Allergy RASH Verified 04/30/18 16:58 [From Cipro] hydromorphone HCl Allergy SHORTNESS Verified 04/30/18 16:58 [From Dilaudid] OF BREATH morphine Allergy RASH Verified 04/30/18 16:58 Penicillins Allergy RASH Verified 04/30/18 16:58 Review of Systems ROS Statement: Except As Marked, All Systems Reviewed And Found Negative Constitutional: Positive for: Chills, Malaise ENT: Positive for: Throat Pain Cardiovascular: Negative for: Chest Pain Respiratory: Positive for: Cough. Negative for: Shortness of Breath Gastrointestinal: Negative for: Vomiting, Abdominal Pain Neurological: Positive for: Headache Physical Exam - Reviewed Nursing Documentation Reviewed: Yes Vital Signs Reviewed: Yes - Physical Exam Appears: Positive for: No Acute Distress Head Exam: Positive for: ATRAUMATIC, NORMAL INSPECTION, NORMOCEPHALIC Skin: Positive for: Normal Color Eye Exam: Positive for: Normal appearance ENT: Negative for: Pharyngeal Erythema Neck: Positive for: Normal, Supple Cardiovascular/Chest: Positive for: Regular Rate, Rhythm Respiratory: Positive for: Normal Breath Sounds. Negative for: Wheezing, Respiratory Distress Gastrointestinal/Abdominal: Positive for: Normal Exam, Soft Back: Positive for: Normal Inspection Extremity: Positive for: Normal ROM Neurologic/Psych: Positive for: Alert, Oriented. Negative for: Motor/Sensory Deficits Medical Decision Making Medical Decision Makinyo female with flu-like symptom rule out pneumonia, bronchitis Plan: -- Chest x-ray -- Rapid flu Discussed with Dr. Cooper. Can be dc'ed on Zithromax and will be followed in office. - Scribe Attestation: Documented by Fabi Ham acting as a scribe for Freddy Walker MD. Provider Attestation: All medical record entries made by the Scribe were at my direction and personally dictated by me. I have reviewed the chart and agree that the record accurately reflects my personal performance of the history, physical exam, medical decision making, and the department course for this patient. I have also personally directed, reviewed, and agree with the discharge instructions and disposition. - ECG O2 Sat by Pulse Oximetry: 99 Disposition - Clinical Impression Clinical Impression: Upper respiratory infection - Patient ED Disposition Is Patient to be Admitted: No Counseled Patient/Family Regarding: Studies Performed, Diagnosis, Need For Followup, Rx Given - Disposition Referrals: Archie Cooper MD [Family Provider] - Disposition: Routine/Home Disposition Time: 14:42 Condition: FAIR Prescriptions: Azithromycin [Zithromax] 250 mg PO DAILY #6 tab Naproxen [Naprosyn] 500 mg PO Q12H #20 tab Instructions: Bacterial Upper Respiratory Infection, Adult Forms: [employer] (Tuvaluan)
--- NOTE | 2018-08-04 16:03 | RAD ---
Date of service: 08/04/2018 HISTORY: cough COMPARISON: 04/08/2018 TECHNIQUE: Chest PA and lateral FINDINGS: LUNGS: No active pulmonary disease. PLEURA: No significant pleural effusion identified. No pneumothorax apparent. CARDIOVASCULAR: No aortic atherosclerotic calcification present. Normal cardiac size. No pulmonary vascular congestion. OSSEOUS STRUCTURES: No significant abnormalities. VISUALIZED UPPER ABDOMEN: Normal. OTHER FINDINGS: None. IMPRESSION: No active disease.
== END 2018-08-04 15:10 | disposition home or self-care (01) ==
LOC: H.ER 12:51
DX: J06.9 Acute upper respiratory infection, unspecified (principal); Z86.59 Personal history of other mental and behavioral disorders; E03.9 Hypothyroidism, unspecified; E05.90 Thyrotoxicosis, unspecified without thyrotoxic crisis or storm; G89.29 Other chronic pain; I12.9 Hypertensive chronic kidney disease with stage 1 through stage 4 chronic kidney disease, or unspecified chronic kidney disease; N18.9 Chronic kidney disease, unspecified; Z87.442 Personal history of urinary calculi; Z88.0 Allergy status to penicillin; Z88.5 Allergy status to narcotic agent; Z88.8 Allergy status to other drugs, medicaments and biological substances; Z88.1 Allergy status to other antibiotic agents; M81.0 Age-related osteoporosis without current pathological fracture

== ENCOUNTER 2018-09-21 10:24 | Emergency (ER) | payer MEDICARE, OTHER ==
[2018-09-21 10:27] VITALS: RESP 17
[2018-09-21 10:28] VITALS: BMI 21.1
[2018-09-21] MEDS ORDERED: Sodium Chloride 0.9% 1,000 ML IV STA (11:26)
--- NOTE | 2018-09-21 11:48 | ED PDOC ---
HPI: General Adult Time Seen by Provider: 09/21/18 11:14 Chief Complaint (Nursing): Flu-like Symptoms Chief Complaint (Provider): Flu-like Symptoms History Per: Patient History/Exam Limitations: no limitations Onset/Duration Of Symptoms: Days Current Symptoms Are (Timing): Still Present Additional Complaint(s): 57 year old female with a past medical history of hypercholesterolemia, hypertension, and gastritis who is presenting to the ED for evaluation of 2 days of worsening body aches. Patient states that yesterday her lungs were hurting and had increased urination. She admits that no matter how much water she drinks she still feels thirsty. Patient reports that her son was recently diagnosed with a viral syndrome last week but was flu negative. She admits to a history of hyperthyroidism but denies taking any medications for it in the last 4 months as she claims they upset her stomach. Patient offers no other medical complaints at this time. PMD: none provided Past Medical History Reviewed: Historical Data, Nursing Documentation, Vital Signs Vital Signs: Last Vital Signs Temp 99.1 F 09/21/18 10:27 Pulse 92 H 09/21/18 10:27 Resp 17 09/21/18 10:27 BP 132/73 09/21/18 10:27 Pulse Ox 97 09/21/18 10:27 - Medical History PMH: Anxiety, Arthritis, Back Problems (pain), Depression, Gastritis, GERD, HTN, Hypercholesterolemia, Hyperlipidemia, Hyperthyroidism, Hypothyroidism, Kidney Stones, Migraine, Osteoporosis (lower spine, left hip), Chronic Kidney Disease, Chronic Pain - Surgical History Surgical History: Appendectomy, Endoscopy - Family History Family History: States: CAD (father), Hypertension - Social History Current smoker - smoking cessation education provided: No Ex-Smoker (has not smoked in the last 12 months): Yes Alcohol: None Drugs: Denies - Home Medications Home Medications: Ambulatory Orders Medication Instructions Recorded ALPRAZolam [Xanax] 1 mg PO HS 01/20/16 Dexlansoprazole [Dexilant] 60 mg PO DAILY 12/14/16 Famotidine [Pepcid] 40 mg PO DAILY PRN 12/14/16 Lubiprostone [Amitiza] 8 mcg PO BID PRN 12/14/16 Naproxen Sodium [Naproxen Sodium 550 mg PO BID 12/14/16 Ds] Propylthiouracil 50 mg PO QPM 12/14/16 Acetaminophen/Butalbital/Caf 1 tab PO Q6 PRN #20 tab 01/03/17 [Fioricet] Ibuprofen [Motrin] 600 mg PO Q6 PRN #15 tab 06/03/17 Methylprednisolone [Medrol Dose 4 mg PO ASDIR #21 mg 06/03/17 Pack (21 tabs)] tiZANidine [Zanaflex] 4 mg PO Q8H PRN #20 tab 06/03/17 Ondansetron [Zofran] 4 mg PO Q8H #10 tab 11/28/17 Acetaminophen/Butalbital/Caf 1 tab PO TID PRN #12 tab 12/05/17 [Fioricet] Nitrofurantoin Macrocrystals 100 mg PO BID #10 cap 12/05/17 [Macrobid] Sucralfate [Carafate] 1 gm PO QID #60 tab 01/27/18 Azithromycin [Zithromax] 250 mg PO DAILY #6 tab 08/04/18 Naproxen [Naprosyn] 500 mg PO Q12H #20 tab 08/04/18 - Allergies Allergies/Adverse Reactions: Allergies Allergy/AdvReac Type Severity Reaction Status Date / Time diphenhydramine HCl Allergy Intermediate SHORTNESS Verified 09/21/18 10:43 [From Benadryl] OF BREATH ciprofloxacin [From Cipro] Allergy RASH Verified 09/21/18 10:43 ciprofloxacin HCl Allergy RASH Verified 09/21/18 10:43 [From Cipro] hydromorphone HCl Allergy SHORTNESS Verified 09/21/18 10:43 [From Dilaudid] OF BREATH morphine Allergy RASH Verified 09/21/18 10:43 Penicillins Allergy RASH Verified 09/21/18 10:43 Review of Systems ROS Statement: Except As Marked, All Systems Reviewed And Found Negative Constitutional: Positive for: Other (body aches ) Cardiovascular: Negative for: Chest Pain Respiratory: Negative for: Shortness of Breath Genitourinary Female: Positive for: Frequency Physical Exam - Reviewed Nursing Documentation Reviewed: Yes Vital Signs Reviewed: Yes - Physical Exam Appears: Positive for: Non-toxic, No Acute Distress (limited exam as patient states she is too weak to roll over or sit up ) Head Exam: Positive for: ATRAUMATIC, NORMAL INSPECTION, NORMOCEPHALIC Skin: Positive for: Normal Color, Warm, Dry Eye Exam: Positive for: Normal appearance Cardiovascular/Chest: Positive for: Regular Rate, Rhythm Respiratory: Positive for: Other (limited exam ). Negative for: Respiratory Distress Gastrointestinal/Abdominal: Positive for: Normal Exam, Soft. Negative for: Tenderness Extremity: Positive for: Normal ROM. Negative for: Deformity, Swelling Neurological/Psych: Positive for: Awake, Alert, Normal Tone, Oriented. Negative for: Motor/Sensory Deficits - Laboratory Results Result Diagrams: 09/21/18 11:56 09/21/18 11:56 - ECG O2 Sat by Pulse Oximetry: 97 (RA) Pulse Ox Interpretation: Normal Medical Decision Making Medical Decision Making: Time: 11:28 A/P: workup for viral syndrome v hyperthyroidism --Labs, chest x-ray, and IV fluids --Toradol for pain --Reassess patient Scribe Attestation: Documented by Nevaeh Clifton, acting as a scribe for Berenice Briggs MD. Provider Scribe Attestation: All medical record entries made by the Scribe were at my direction and personally dictated by me. I have reviewed the chart and agree that the record accurately reflects my personal performance of the history, physical exam, medical decision making, and the department course for this patient. I have also personally directed, reviewed, and agree with the discharge instructions and disposition. Disposition - Clinical Impression Clinical Impression: Myalgia, Influenza-like symptoms, Viral illness - Disposition Disposition: Routine/Home Disposition Time: 14:42 Condition: IMPROVED Additional Instructions: Follow up with primary medical doctor. Take Tylenol as needed for body aches and pain. Follow up with car lot attendant for medications for low thyroid hormones. Increase rest and drink plenty of water while symptoms last. Instructions: Cough, Runny Nose, and the Common Cold (DC), Viral Syndrome (DC) Forms: [employer] (Canadian) Print Language: TAJIK
[2018-09-21 12:53] LABS: BASO % 0.3 % (0.0-2.0); EOS % 0.3 % (0.0-4.0); HEMOGLOBIN 12.1 g/dL (12.0-16.0); LYMPH # 0.3 K/uL (1.0-4.3); LYMPH % 9.4 % (20.0-40.0); MEAN CELL VOLUME 85.1 fl (81.0-99.0); MEAN CORPUSCULAR HEMOGLOBIN 27.8 pg (27.0-31.0); MEAN CORPUSCULAR HGB CONC 32.6 g/dL (33.0-37.0); MEAN PLATELET VOLUME 9.3 fl (7.2-11.7); MONO # 0.3 K/uL (0.0-0.8); MONO % 8.5 % (0.0-10.0); NEUT # 2.7 K/uL (1.8-7.0); NEUT % 81.5 % (50.0-75.0); NRBC % 0.2 % (0.0-0.0); PLATELET COUNT 170 K/uL (130-400); RBC 4.36 Mil/uL (3.80-5.20); RED CELL DISTRIBUTION WIDTH 14.6 % (11.5-14.5); WHITE BLOOD COUNT 3.3 K/uL (4.8-10.8)
[2018-09-21 12:59] LABS: BLOOD UREA NITROGEN 9 mg/dl (7-17); CALCIUM 9.8 mg/dL (8.4-10.2); GFR NON-AFRICAN AMERICAN > 60
[2018-09-21 12:59] LABS: URINE BILIRUBIN NEGATIVE (NEGATIVE); URINE BLOOD SMALL (NEGATIVE); URINE CLARITY CLEAR (Clear); URINE COLOR STRAW (YELLOW); URINE GLUCOSE (UA) NEG (NEGATIVE); URINE LEUKOCYTE ESTERASE NEG Leu/uL (Negative); URINE PROTEIN NEGATIVE (NEGATIVE); URINE UROBILINOGEN 0.2-1.0 mg/dL (0.2-1.0)
[2018-09-21 14:21] LABS: T3 0.853 nmol/L (1.49-2.60)
[2018-09-21 14:23] LABS: LYMPHOCYTE 8 % (20-50); MONOCYTE 8 % (0-10); NEUTROPHIL 84 % (42-75); TOTAL CELLS COUNTED 100
[2018-09-21 14:24] LABS: PLATELET ESTIMATE NORMAL (NORMAL)
[2018-09-21] MEDS ORDERED: Alum-Mag Hydrox-Simethicone Susp (30 mL) PO STA (14:40)
[2018-09-21 14:52] VITALS: BP 138/76; PULSE 75; TEMP 98.7
--- NOTE | 2018-09-21 17:10 | RAD ---
HISTORY: cough COMPARISON: Chest x-ray performed 08/04/18 TECHNIQUE: Chest PA and lateral FINDINGS: LUNGS: No focal consolidation. Hyperinflation may be seen in the setting of COPD. Please note that chest x-ray has limited sensitivity for the detection of pulmonary masses. PLEURA: No significant pleural effusion identified. No definite pneumothorax . CARDIOVASCULAR: The cardiomediastinal silhouette appears within normal limits of size. No atherosclerotic calcification present. OSSEOUS STRUCTURES: No acute osseous abnormality identified. VISUALIZED UPPER ABDOMEN: Unremarkable. OTHER FINDINGS: None. IMPRESSION: No focal consolidation. Hyperinflation may be seen in the setting of COPD.
--- NOTE | 2018-09-22 13:19 | CARD ---
APPROVED REPORT Date of service: 09/21/2018 EKG Measurement Heart [id number] ID [id number] <Conclusion> Normal sinus rhythm Nonspecific ST abnormality Abnormal ECG
[2018-10-02 10:35] VITALS: O2SAT 97
== END 2018-09-21 14:51 | disposition home or self-care (01) ==
LOC: H.ER 10:24
DX: R63.1 Polydipsia (principal); M79.10 Myalgia, unspecified site; J11.1 Influenza due to unidentified influenza virus with other respiratory manifestations; B34.9 Viral infection, unspecified; E03.9 Hypothyroidism, unspecified; Z86.59 Personal history of other mental and behavioral disorders; G89.29 Other chronic pain; I12.9 Hypertensive chronic kidney disease with stage 1 through stage 4 chronic kidney disease, or unspecified chronic kidney disease; Z87.442 Personal history of urinary calculi; Z87.891 Personal history of nicotine dependence; Z88.0 Allergy status to penicillin; Z88.8 Allergy status to other drugs, medicaments and biological substances; Z88.1 Allergy status to other antibiotic agents; Z88.5 Allergy status to narcotic agent; M81.0 Age-related osteoporosis without current pathological fracture
CPT/HCPCS: 71046; 80048; 81003; 84436; 84443; 84480; 84484; 85025; 87804; 93005; 96361; 96374; 96375; 99284; J1885; J7030

== ENCOUNTER 2018-11-08 12:54 | Emergency (ER) | payer MEDICARE, OTHER ==
[2018-11-08 12:55] VITALS: BMI 21.1
[2018-11-08 13:26] VITALS: RESP 16
[2018-11-08] MEDS ORDERED: Sodium Chloride 0.9% 1,000 ML IV SCH (15:15)
[2018-11-08 16:21] LABS: BASO % 0.4 % (0.0-2.0); EOS % 0.4 % (0.0-4.0); HEMOGLOBIN 12.9 g/dL (12.0-16.0); LYMPH # 1.7 K/uL (1.0-4.3); LYMPH % 31.4 % (20.0-40.0); MEAN CELL VOLUME 85.3 fl (81.0-99.0); MEAN CORPUSCULAR HEMOGLOBIN 28.1 pg (27.0-31.0); MEAN CORPUSCULAR HGB CONC 32.9 g/dL (33.0-37.0); MEAN PLATELET VOLUME 9.6 fl (7.2-11.7); MONO # 0.4 K/uL (0.0-0.8); MONO % 7.1 % (0.0-10.0); NEUT # 3.3 K/uL (1.8-7.0); NEUT % 60.7 % (50.0-75.0); NRBC % 0.1 % (0.0-0.0); RBC 4.57 Mil/uL (3.80-5.20); RED CELL DISTRIBUTION WIDTH 14.4 % (11.5-14.5); WHITE BLOOD COUNT 5.4 K/uL (4.8-10.8)
[2018-11-08 16:32] LABS: BLOOD UREA NITROGEN 9 mg/dl (7-17); CALCIUM 9.8 mg/dL (8.4-10.2); GFR NON-AFRICAN AMERICAN > 60
--- NOTE | 2018-11-08 16:33 | ED PDOC ---
Lower Extremity Pain/Injury Time Seen by Provider: 11/08/18 13:41 Chief Complaint (Nursing): Lower Extremity Problem/Injury Chief Complaint (Provider): Lower Extremity Problem/Injury History Per: Patient History/Exam Limitations: no limitations Onset/Duration Of Symptoms: Days (x 2 weeks), Sudden Onset Current Symptoms Are (Timing): Still Present Additional Complaint(s): 57 year old female with a history of gastritis and thyroid disease presents with bilateral leg pain for two weeks associated with fatigue. Two weeks ago, the patient reports sudden onset severe bilateral thigh pain. She has only been taking Tylenol, as she has severe gastritis with anti-inflammatory medications. Tylenol has provided minimal relief. Last dose was this morning at 5. Pain is constant throughout the day. Patient also reports intermittent bilateral lower extremity swelling that resolves on its own. Today, she developed worsening pain behind her right knee and calf with swelling, prompting ED visit. She came to the ED for further evaluation of blood clot. Denies fever, chest pain and chills or leg weakness. PMD: Dr. Archie Cooper Past Medical History Reviewed: Historical Data, Nursing Documentation, Vital Signs Vital Signs: Last Vital Signs Temp 97.9 F 11/08/18 13:23 Pulse 64 11/08/18 13:23 Resp 16 11/08/18 13:23 BP 113/62 11/08/18 13:23 Pulse Ox 99 11/08/18 13:23 Primary Care Provider: Archie Cooper - Medical History PMH: Anxiety, Arthritis, Back Problems (pain), Depression, Gastritis, GERD, HTN, Hypercholesterolemia, Hyperlipidemia, Hyperthyroidism, Hypothyroidism, Kidney Stones, Migraine, Osteoporosis (lower spine, left hip), Chronic Kidney Disease, Chronic Pain - Surgical History Surgical History: Appendectomy, Endoscopy - Family History Family History: States: CAD (father), Hypertension - Home Medications Home Medications: Ambulatory Orders Medication Instructions Recorded ALPRAZolam [Xanax] 1 mg PO HS 01/20/16 Dexlansoprazole [Dexilant] 60 mg PO DAILY 12/14/16 Famotidine [Pepcid] 40 mg PO DAILY PRN 12/14/16 Lubiprostone [Amitiza] 8 mcg PO BID PRN 12/14/16 Naproxen Sodium [Naproxen Sodium 550 mg PO BID 12/14/16 Ds] Propylthiouracil 50 mg PO QPM 12/14/16 Acetaminophen/Butalbital/Caf 1 tab PO Q6 PRN #20 tab 01/03/17 [Fioricet] Ibuprofen [Motrin] 600 mg PO Q6 PRN #15 tab 06/03/17 Methylprednisolone [Medrol Dose 4 mg PO ASDIR #21 mg 06/03/17 Pack (21 tabs)] tiZANidine [Zanaflex] 4 mg PO Q8H PRN #20 tab 06/03/17 Ondansetron [Zofran] 4 mg PO Q8H #10 tab 11/28/17 Acetaminophen/Butalbital/Caf 1 tab PO TID PRN #12 tab 12/05/17 [Fioricet] Nitrofurantoin Macrocrystals 100 mg PO BID #10 cap 12/05/17 [Macrobid] Sucralfate [Carafate] 1 gm PO QID #60 tab 01/27/18 Azithromycin [Zithromax] 250 mg PO DAILY #6 tab 08/04/18 Naproxen [Naprosyn] 500 mg PO Q12H #20 tab 08/04/18 - Allergies Allergies/Adverse Reactions: Allergies Allergy/AdvReac Type Severity Reaction Status Date / Time diphenhydramine HCl Allergy Intermediate SHORTNESS Verified 11/08/18 13:22 [From Benadryl] OF BREATH ciprofloxacin [From Cipro] Allergy RASH Verified 11/08/18 13:22 ciprofloxacin HCl Allergy RASH Verified 11/08/18 13:22 [From Cipro] hydromorphone HCl Allergy SHORTNESS Verified 11/08/18 13:22 [From Dilaudid] OF BREATH morphine Allergy RASH Verified 11/08/18 13:22 Penicillins Allergy RASH Verified 11/08/18 13:22 Review of Systems ROS Statement: Except As Marked, All Systems Reviewed And Found Negative Constitutional: Negative for: Fever, Chills Cardiovascular: Negative for: Chest Pain Respiratory: Positive for: Shortness of Breath Musculoskeletal: Positive for: Leg Pain Physical Exam - Reviewed Nursing Documentation Reviewed: Yes Vital Signs Reviewed: Yes - Physical Exam Appears: Positive for: Uncomfortable Head Exam: Positive for: ATRAUMATIC, NORMAL INSPECTION, NORMOCEPHALIC Skin: Positive for: Normal Color, Warm, Dry. Negative for: Rash Cardiovascular/Chest: Positive for: Regular Rate, Rhythm. Negative for: Murmur Respiratory: Positive for: Normal Breath Sounds Pulses-Dorsalis Pedis (L): 2+ Pulses-Dorsalis Pedis (R): 2+ Extremity: Positive for: Normal ROM (normal flexion and extension at bilateral hips, knees and ankles), Tenderness (tenderness on palpation of posterior right knee to the right calf. Minimal tenderness on palpation of bilateral thighs), Capillary Refill (< 2 seconds). Negative for: Swelling (or ecchymosis to bilate ral lower extremities) - Laboratory Results Result Diagrams: 11/08/18 16:16 11/08/18 16:16 - ECG O2 Sat by Pulse Oximetry: 99 (RA) Pulse Ox Interpretation: Normal Medical Decision Making Medical Decision Makin:45 MDM: CBC, CMP, CPK, D Dimer Normal saline 1 liter IV x 1 Bilateral lower extremity venous Duplex US 17:31 US FINDINGS: COMMON FEMORAL VEIN: Right CFV: Unremarkable. Left CFV: Unremarkable. SUPERFICIAL FEMORAL VEIN: Right SFV: Unremarkable. Left SFV: Unremarkable. POPLITEAL VEIN: Right Popliteal: Unremarkable. Left Popliteal: Unremarkable. POSTERIOR TIBIAL VEIN: Right PTV: Unremarkable. Left PTV: Unremarkable. OTHER FINDINGS: None. IMPRESSION: No evidence of deep venous thrombosis. 18:00 Leg pain has improved significantly. Patient advised to elevate legs whenever possible and to follow with PMD in 2-3 days for evaluation. Patient is stable for discharge. Scribe Attestation: Documented by Kimberly Paige, acting as a scribe for Delilah Noland PA-C Provider Scribe Attestation: All medical record entries made by the Scribe were at my direction and personally dictated by me. I have reviewed the chart and agree that the record accurately reflects my personal performance of the history, physical exam, medical decision making, and the department course for this patient. I have also personally directed, reviewed, and agree with the discharge instructions and disposition. Disposition - Clinical Impression Clinical Impression: Leg pain - Patient ED Disposition Is Patient to be Admitted: No - Disposition Referrals: Archie Cooper MD [Staff Provider] - Disposition: Routine/Home Disposition Time: 18:00 Condition: STABLE Additional Instructions: Follow up with Dr. Diaz within the next 2 - 3 days for further evaluation of leg pain. Keep legs elevated whenever able. Return to ER if your symptoms worsen. Stay well hydrated. Forms: [employer] (Greenlandic) Print Language: DANISH
--- NOTE | 2018-11-08 17:34 | US ---
Date of service: 11/08/2018 PROCEDURE: Bilateral lower extremity venous duplex Doppler. HISTORY: acute R leg swelling and pain duplex left lower extremity venous study performed 01/20/16, bilateral lower extremity Doppler ultrasound performed 01/18/15 COMPARISON: None available. TECHNIQUE: Bilateral common femoral, superficial femoral, popliteal and posterior tibial veins were evaluated. Flow was assessed with color Doppler, compressibility, assessment of phasic flow and augmentation response. FINDINGS: COMMON FEMORAL VEIN: Right CFV: Unremarkable. Left CFV: Unremarkable. SUPERFICIAL FEMORAL VEIN: Right SFV: Unremarkable. Left SFV: Unremarkable. POPLITEAL VEIN: Right Popliteal: Unremarkable. Left Popliteal: Unremarkable. POSTERIOR TIBIAL VEIN: Right PTV: Unremarkable. Left PTV: Unremarkable. OTHER FINDINGS: None. IMPRESSION: No evidence of deep venous thrombosis.
[2018-11-08 18:48] VITALS: BP 128/68; PULSE 68; TEMP 98
[2018-11-08 23:47] VITALS: O2SAT 99
== END 2018-11-08 18:46 | disposition home or self-care (01) ==
LOC: H.ER 12:54
DX: M79.605 Pain in left leg (principal); M79.604 Pain in right leg; Z86.59 Personal history of other mental and behavioral disorders; E03.9 Hypothyroidism, unspecified; G89.29 Other chronic pain; I12.9 Hypertensive chronic kidney disease with stage 1 through stage 4 chronic kidney disease, or unspecified chronic kidney disease; N18.9 Chronic kidney disease, unspecified; Z87.442 Personal history of urinary calculi; Z88.0 Allergy status to penicillin; Z88.8 Allergy status to other drugs, medicaments and biological substances; Z88.5 Allergy status to narcotic agent; Z88.1 Allergy status to other antibiotic agents; M81.0 Age-related osteoporosis without current pathological fracture
CPT/HCPCS: 80048; 82550; 85025; 93970; 96360; 96361; 99283; J7030